=== PATIENT | female | born 1955 | race Caucasian/White ===

== ENCOUNTER 2017-11-02 05:30 | Day surgery (SDC) | payer BC, SELFPAY ==
[2017-10-19 09:50] VITALS: BP 106/71; BMI 36.5
--- NOTE | 2017-10-27 08:28 | EKG12_ITS ---
Test Reason : PRE OP Blood Pressure : / mmHG Vent. Rate : 077 BPM Atrial Rate : 077 BPM P-R Int : 138 ms QRS Dur : 088 ms QT Int : 392 ms P-R-T Axes : 041 -53 031 degrees QTc Int : 443 ms Normal sinus rhythm Left anterior fascicular block Poor R wave progression Abnormal ECG Confirmed by PERI EMANUEL, MITCHEL ([id number]), graphic editor CHIDI RUIZ ([id number]) on 10/30/2017 12:49:44 PM Referred By: René Harvey Confirmed By:MITCHEL WHITT MD
[2017-11-02] VITALS (7 sets, daily range): BP systolic 86–124; BP diastolic 54–82; PULSE 50–72; RESP 16; TEMP 35.8–36.2; O2SAT 93–98; BMI 37.0
--- NOTE | 2017-11-02 | GALL_PTH ---
PATIENT: ASPEN FAUSTIN LOC: [facility] U#:[id number] AGE/SX: 62/F ROOM: RE11/02/[address]: Dr. René Harvey MD : 1955 BED: DIS: 11/02/2017 SPEC #: [id number] RECD: 11/02/17 14:50 STATUS: JAY AVIS #: [id number] VASILE: 11/02/17 00:[address]: René Harvey DEPT: SURGICAL PATHOLOGY RECD BY: Terell Galo ENTERED: 11/02/17 14:50 SP TYPE: ALIN BANERJEE DR: Estephania Robins, SECURITY ALARM INSTALLER-C Tissues: Gallbladder, NOS Procedures: Surgery Specimen Level III HEADER OPERATION: Laparoscopic cholecystectomy, umbilical hernia repair PRE-OP DIAGNOSIS: Biliary dyskinesia, umbilical hernia without obstruction and without gangrene TISSUE SUBMITTED: Gallbladder MICROSCOPIC DIAGNOSIS Gallbladder: Mild chronic cholecystitis. No stones are identified in the container or in the gallbladder. SJ:kendall 11/03/17 MICROSCOPIC DESCRIPTION Slides are reviewed. GROSS DESCRIPTION Received is one container labeled with the patient's name and designated gallbladder. The specimen consists of a gallbladder measuring 7 cm in length and up to 3 cm in diameter. The external surface is pink-tovar, smooth and glistening for the most part. Focally it is granular, hemorrhagic and contains cautery artifact. The gallbladder contains a small amount of green-yellow mucoid bile. No stones are identified in the container or in the gallbladder. The mucosa is bile-stained and without any mass lesions. The gallbladder wall measures 0.2 cm in thickness. Travel Rn sections from the gallbladder and the cystic duct are submitted in one cassette. / SARAHI:kendall 11/02/17 TC:3 CPT: 71823
[2017-11-02] MEDS: Cefazolin 2 GM in 0.9% Normal Saline 100 ML IV (07:10)
--- NOTE | 2017-11-02 07:18 | PCM.DC.GB ---
Discharge Diet: Light diet - advance as tolerated Discharge Activity: May Not Drive - for 2-3 days or while taking narcotic pain medications., - - Do not drive, work heavy equipment or sign legal documents for 24 hours. May shower in (days): 1 - with the bandage in place. Additional Activity Instructions:: Pain medication may cause nausea. You should typically eat light foods as you take your pain medications. Pain medication may also cause constipation. If this is a problem for you, please discuss with your doctor. Call your doctor if your incision/area has: Continuous Slow Oozing, Sudden Increased Bleeding, Increased Pain/ Swelling, Increased Redness, Foul Smelling Discharge Call your doctor if you observe: Fever of 101 or Higher Suture Line Care: Avoid Pulling/Pushing, Avoid Pinching/Bending Additional Dressing/Incision Instructions:: Leave operative bandaids on for 2 days. When you remove dressing, leave Steri-Strips on until your follow-up appointment, or until the Steri-Strips fall off on their own. Allergies/Adverse Reactions: Allergies shellfish derived Allergy (Mild, Verified 10/26/17 09:47) Unknown seasonal allergies Allergy (Mild, Uncoded 10/26/17 09:47) Unknown Medications to take at Discharge Ergocalciferol [Vitamin D] 50,000 units PO TUFR 08/24/17 Hydrochlorothiazide [Hctz] 25 mg PO DAILY 08/24/17 Pravastatin Sodium [Pravastatin Sodium] 80 mg PO QHS 08/24/17 Venlafaxine XR [Effexor Xr] 75 mg PO DAILY 08/24/17 black cohosh 20 mg tablet 20 mg PO QDAY 10/19/17 glucosamine sulfate 500 mg tablet 500 mg PO BID 10/19/17 meloxicam 7.5 mg tablet 7.5 mg PO QDAY 10/19/17 Primary Care Physician: Estephania Robins [Primary Care Provider] - Please Follow Up With: René Harvey MD - Please call [phone] to schedule an appointment. When: 7 days after your surgery.
--- NOTE | 2017-11-02 07:21 | PCM.OPRPT ---
Problem List (1) Biliary dyskinesia Status: Acute (2) Umbilical hernia without obstruction or gangrene Status: Acute Report of Operation Date of Procedure: 11/02/17 Pre-Operative Diagnosis: K 82.8 biliary dyskinesia. K 42.9 umbilical hernia without obstruction and without gangrene Post-Operative Diagnosis: Same Surgery/Procedure Performed:: [id number] laparoscopic cholecystectomy. Umbilical hernia without mesh Type of Anesthesia:: General Anesthesiologist: Margarito Wasserman Estimated Blood Loss (mL): < 25 cc Fluids Replaced: 1 L Description of Procedure: Patient was brought into the operating room and placed in the supine position. Under excellent general endotracheal intubation the abdomen was sterilely prepped and draped in the usual fashion. Local was injected infraumbilically and a curvilinear incision was made. Patient had an umbilical hernia which I dissected free. I was able to gain access intraperitoneally and I placed the 1012 trocar directly into the abdomen and inflated it to 15 torr. The patient was placed up in the head up and rotated to the left position. A subxiphoid #5 trocar was placed, inferior to this another #5 trocar was placed, and finally a lateral #5 trocar was placed. All of these under direct visualization without injury to underlying structures. Fundus of the gallbladder was retracted in a cephalad direction and significant amount of adhesions were taken down from the gallbladder itself. I dissected out the cystic duct place hemoclips proximally and distally and ligated the duct identified the cystic artery place hemoclips proximally and distally ligated the artery. I deliver the gallbladder from the gallbladder bed with use of electrocautery I did have some spillage of bile which I was easily able to retrieve but there were no stones. I placed a specimen a specimen bag delivered through the umbilical port without difficulty. Reinflated the abdomen and inspected the liver bed I had good hemostasis. I remove the trochars under direct visualization I had good hemostasis. I closed the umbilical defect with interrupted #1 Nurolon's. Skin incisions were closed with subcuticular stitches of 4-0 Monocryl. Sterile dressings were applied. She tolerated the procedure well. - Admit VTE Documentation VTE Present on Admission: No VTE Mechan Device Prophylaxis: SCD's VTE Pharm Prophylaxis ordered?: No Reason prophylaxis not ordered:: Treatment Not Indicated
[2017-11-02] MEDS: Bupivacaine 0.25% 30 ML Vial (07:50)
== END 2017-11-02 11:09 | disposition home or self-care (01) ==
LOC: SDC 05:31 → AC 05:31
PROVIDERS: Family Provider Nurse Practitioner; PCP Nurse Practitioner; Visit Provider Surgery
PROC: (CPT 47562; principal; 2017-11-02 06:55)
DX: K81.1 Chronic cholecystitis (principal); K42.9 Umbilical hernia without obstruction or gangrene; E11.9 Type 2 diabetes mellitus without complications; I10 Essential (primary) hypertension; E78.00 Pure hypercholesterolemia, unspecified; G47.30 Sleep apnea, unspecified; J30.2 Other seasonal allergic rhinitis; F32.9 Major depressive disorder, single episode, unspecified; Z79.84 Long term (current) use of oral hypoglycemic drugs; Z79.899 Other long term (current) drug therapy
CPT/HCPCS: 47562; 49585; 88304; J7120; J2405

== ENCOUNTER 2017-11-04 03:09 | Observation (INO) | payer BC, SELFPAY ==
[2017-11-04] VITALS (25 sets, daily range): BP systolic 100–174; BP diastolic 67–131; PULSE 55–107; RESP 14–22; TEMP 36.1–37.2; O2SAT 91–100; BMI 38.8; BMI 39.1
--- NOTE | 2017-11-04 03:11 | CT_ITS ---
STUDY: CT ABDOMEN AND PELVIS WITHOUT CONTRAST REASON FOR EXAM: Female, 62 years old. Pain and umbilical hernia repair on RADIATION DOSAGE (If Supplied By Facility): CTDIvol = ( 22.13 ) mGy, DLP = ( 1183.03 ) mGycm TECHNIQUE: Transaxial images were obtained from the dome of the diaphragm to the symphysis pubis without oral contrast, and without intravenous contrast. Sagittal and coronal images were reconstructed. Individualized dose optimization techniques were used for this CT. COMPARISON: None. FINDINGS: The visualized lung bases are unremarkable. The visualized portions of the heart are within normal limits. Hepatomegaly, with liver length of 20 cm. There has likely been cholecystectomy. There is a benign calcified granuloma of the spleen. Normal pancreas. Normal bilateral adrenal glands. Normal right kidney. Normal left kidney. Normal visualized stomach. Normal small intestine. Normal colon. The appendix is visualized and appears normal. Normal abdominal aorta. Normal inferior vena cava. Normal retroperitoneum. Normal urinary bladder. Postoperative changes in the umbilical portion of the abdominal wall compatible with recent hernia surgery. Small amount of residual free air is present at the surgical site. Stranding of fat is also present which is likely related to postoperative fat necrosis. No hematomas or abscesses are seen. Lumbosacral fusions and laminectomies. CT/Abdomen/Pelvis without Cont IMPRESSION: Residual postoperative changes involving the abdominal wall as described without abscess or hematoma. Hepatomegaly. No evidence of acute intestinal pathology. Electronically Signed: Freeman Meeks MD at 4:01 EST Tel , Service support ,
--- NOTE | 2017-11-04 03:12 | ED.VISSUMM ---
- ER Visit Summary Date of Service: 11/04/17 Chief Complaint: Abdominal pain History of Present Illness: The patient is a 62 F presenting for evaluation secondary to abdominal pain. Patient is less than 2 days status post laparoscopic cholecystectomy and umbilical hernia repair by Dr. Harvey. Patient was discharged without complication, but states that today she had a sudden onset of sharp stabbing epigastric abdominal pain. Patient states that it is moderate to severe worse with movement. Denies any nausea or vomiting. She denies any diarrhea but does endorse that she has been somewhat constipated since discharge. She denies any presence of fevers. Review of systems otherwise negative. Physical Examination: Well-nourished well-developed female visibly in moderate distress secondary to pain. Vital signs are within normal limits. Head normocephalic. Moist mucous membranes. No JVD noted, heart regular rate and rhythm no murmurs. Lungs sounds clear. Abdomen was tender with guarding in the epigastrium and distended. Incisions are clean dry and intact with no palpable masses. Normal distal pulses, skin normal color no rash. Remainder physical otherwise unremarkable. Test Results: CT abdomen and pelvis shows postsurgical changes with normal caliber large and small bowel per radiology. Per my review the patient does have a large stool load in the a sending and transverse colon. CBC shows mild leukocytosis of 11.9, chemistry shows no evidence of anion gap or acidosis. Liver panel does show mildly elevated ALT AST and lipase. Lipase was 617. Emergency Department Course and Treatment: Patient presented secondary to relatively significant abdominal pain. IV was immediately established patient was given 8 mg of morphine Zofran and fluids. She continued to have pain and was given dose of Dilaudid. Patient's workup was found to be unremarkable, by my personal review of her images potentially she is having pain from increased stool burden in her ascending colon, so the patient was given a dose of Bentyl for spasm, and was given a dose of the lactulose. Patient continued to have pain after this and was given a subsequent dose of 1/2 mg of Dilaudid. After that, however the patient started to become hypoxic due to re-decreased respiratory drive from increased opiates but received absolutely no pain relief from any of this. I repeated a lipase to see if this was trending in an upward direction and actually came down into the 400s. I obtain a lactic at that point there was found to be slightly above 2. I feel that the patient with only a lactic acid of 2 is a volvulus or ischemic gut, but regardless the patient is still having this intractable abdominal pain and I believe that she requires admission by surgery for further observation. I also considered the possibility of a retained gallstone, but upon review of the patient's records she does not have any history of gallstones on any of her imaging so this also seems unlikely. I discussed this with Dr. Graves who agreed to accept the patient to the floor. Disposition: Admission Impression: 1. Intractable abdominal pain 2. Recent laparoscopic cholecystectomy and umbilical hernia repair 3. Indeterminately elevated lipase This note was generated with [employer] dictation software. It may contain incorrect words, spelling, and punctuation that were not noted in review of the chart prior to signing ED Disposition - Plan for ED Patient: Chief Complaint: Abd Pain Referrals: Estephania Robins [Primary Care Provider] -
[2017-11-04] MEDS: 0.9% Normal Saline 1,000 ML 1000 ML IV (03:18)
[2017-11-04 03:27] LABS: Absolute Lymphocyte Count 2.91 X10^3/ul (0.83-4.51); Basophil# 0.02 X10^3/uL; Basophil% 0.2 % (0-1); Eosinophil# 0.28 X10^3/uL; Eosinophils% 2.3 % (0-5); Hematocrit 37.8 % (37-47); Hemoglobin 11.9 g/dl (12.0-15.0); Lymphocyte # 2.91 X10^3/ul (4.0); Lymphocyte % 24.4 % (19-41); Mean Corp Hgb Conc 31.5 g/gl (32-36); Mean Corpuscular Hgb 30.3 pg (27.0-32.0); Mean Corpuscular Volume 96.2 fL (81-99); Mean Platelet Vol. 11.3 fl (6.2-12.0); Monocyte# 0.69 X10^3/uL; Monocyte% 5.8 % (0-10); Neutrophil # 8.02 X10^3/uL (2.7-7.7); Neutrophil % 67.1 % (47-70); POSITIVE COUNT NO; POSITIVE DIFFERENTIAL NO; POSITIVE MORPHOLOGY NO; Platelet Count 270 K/mm3 (150-450); RBC Distribution Width CV 12.7 % (11.6-14.6); RBC Distribution Width SD 44.8 fl (35.1-43.9); Red Blood Count 3.93 M/mm3 (4.2-5.4); White Blood Count 11.9 K/mm3 (4.4-11.0)
[2017-11-04] MEDS: HYDROmorphone 1 MG/ML Syringe IV ×4 (03:39→15:46)
[2017-11-04 03:40] LABS: AST(SGOT) 67 U/L (15-37); Alanine Aminotransfer ALT/SGPT 65 U/L (13-56); Albumin, Serum 3.5 g/dL (3.2-5.0); Alkaline Phosphatase 83 U/L (45-117); Anion Gap 9 (5-15); BUN 25 mg/dL (7-18); BUN/Creat Ratio 25.2 RATIO (10-20); Calcium,Total 8.8 mg/dL (8.5-10.1); Chloride 101 mmol/L (98-107); Creatinine, Serum 0.99 mg/dL (0.55-1.02); EST Glomerular Filtration Rate 61 mL/min (>60); Est Glom Filt Rate - Afr Amer 73 mL/min (>60); Estimated Creatinine Clearance 49.99 ml/min; Globulin 3.5 g/dL (2.2-4.2); Glucose 146 mg/dL (74-106); Lipase 617 U/L (73-393); Potassium 3.7 mmol/L (3.5-5.1); Sodium Level 141 mmol/L (136-145)
[2017-11-04] MEDS: Dicyclomine 20 MG/2 ML Vial IM (04:15)
[2017-11-04] MEDS: Lactulose 20 GM/30 ML UDC PO (04:17)
[2017-11-04] MEDS: HYDROmorphone 1 MG/ML Syringe 0.5 MG IV (04:45)
[2017-11-04 05:30] LABS: Lipase 492 U/L (73-393)
[2017-11-04 05:52] LABS: Lactic Acid 2.3 mmol/L (0.4-2.0)
--- NOTE | 2017-11-04 05:58 | ED.RN ---
lactic acid 2.3, . made aware.
[2017-11-04] MEDS: 0.9% Normal Saline 1,000 ML 999 ML IV (05:59)
[2017-11-04] MEDS: Dextrose 5%-Lactated Ringers 1,000 ML 125 ML IV ×2 (08:07→21:48)
--- NOTE | 2017-11-04 08:15 | PCM.HP.STD ---
Problem List (1) Biliary dyskinesia Status: Acute History of Present Illness Date of Admission: 11/04/17 The patient is a 62 year old F who had elective cholecystectomy 2 days ago. She reports that after cholecystectomy she went home and was feeling fine the following day she was feeling fine until 1:30 in the morning this morning. She had sudden onset of severe epigastric pain. She reports no nausea or vomiting. She has not had a bowel movement since surgery. She said the pain was very severe and was not helped with pain medication. She does not have any fevers or chills. The pain is diffuse throughout the abdomen but worse in the epigastric area and does not radiate anywhere else. Past Medical History Allergies shellfish derived Allergy (Mild, Verified 11/04/17 06:57) Unknown seasonal allergies Allergy (Mild, Uncoded 11/04/17 03:10) Unknown Home Medications: Ambulatory Orders Medication Instructions Recorded Ergocalciferol [Vitamin D] 50,000 units PO TUFR 08/24/17 Hydrochlorothiazide [Hctz] 25 mg PO DAILY 08/24/17 Pravastatin Sodium [Pravastatin 80 mg PO QHS 08/24/17 Sodium] Venlafaxine XR [Effexor Xr] 75 mg PO DAILY 08/24/17 black cohosh 20 mg tablet 20 mg PO QDAY 10/19/17 glucosamine sulfate 500 mg tablet 500 mg PO BID 10/19/17 meloxicam 7.5 mg tablet 7.5 mg PO QDAY 10/19/17 Metformin HCl [Glucophage] 500 mg PO BID 11/04/17 Oxycodone HCl/Acetaminophen 1 tab PO Q4H PRN PRN 11/04/17 [Percocet 5-325] Surgical History: cholecystectomy Smoking Status: Never smoker Alcohol: None Drugs: None - *Family History Maternal History Items: No pertinent history Review of Systems Constitutional: Denies: Anorexia, Chills, Fever HEENT: Denies: Difficulty Swallowing Cardiovascular: Denies: Chest Pain Respiratory: Denies: Cough Gastrointestinal: Reports: Abdominal Pain - Diffuse abdominal pain worse in the epigastric region. Denies: Hematochezia, Nausea, Vomiting Genitourinary: Denies: Dysuria Musculoskeletal: Denies: Joint Tenderness Skin: Denies: Dryness, Jaundice Psychiatric: Denies: Anxiety, Depression VTE Information - Inpt Only VTE Present on Admission: No VTE Mechan Device Prophylaxis: SCD's VTE Pharm Prophylaxis ordered?: Yes - Physical Exam General: Alert, Oriented x3, Cooperative HEENT: Atraumatic, PERRLA, EOMI Lungs: Normal air movement Cardiovascular: Regular rate, Regular Rhythm Abdomen: Soft, Tender - Diffuse tenderness to palpation with no guarding or rebound., - - Incisions are clean dry and intact with no erythema. There is mild ecchymosis at the umbilical hernia site but there is no sign of infection. Skin: No rashes Musculoskeletal: No Muscle Wasting Vital Signs Temp Pulse Resp BP Pulse Ox 97.6 F L 71 22 H 174/96 H 94 11/04/17 07:47 11/04/17 07:47 11/04/17 07:47 11/04/17 07:47 11/04/17 07:47 Oxygen Flow Rate 3 Oxygen Delivery Method Nasal Cannula Weight: 220 lb 12.8 oz Body Mass Index (BMI) 39.1 Clinical Impression(s) from Imaging Studies Abdomen/Pelvis CT 11/04/17 03:11 IMPRESSION: Residual postoperative changes involving the abdominal wall as described without abscess or hematoma. Hepatomegaly. No evidence of acute intestinal pathology. Electronically Signed: Freeman Meeks MD at 4:01 EST Tel , Service support , Assessment/Plan 62-year-old female with postoperative pain after laparoscopic cholecystectomy 1. The patient had a CT scan in the emergency room. Her white count was also mildly elevated as was her lipase. LFTs were normal. Her CT did reveal large amount of stool in the ascending and transverse colon. I am also confused as to why she has pancreatitis that she did not have any stones in her gallbladder. Her lipase is already improving. I will keep her n.p.o. until repeat labs show her white count decreasing and her lactate decreasing. I will order her mag citrate and an enema for constipation. I will also start her on Colace. 2. She is requiring oxygen at this time. She is not describing any chest pain. I will start her on prophylactic Lovenox. If her oxygen status continues to deteriorate I will order a CTA. 3. N.p.o., IV fluids, SCDs, Lovenox, bowel regimen. Pain control. Zi Graves MD Pager: [facility] [address], [facility] [address] [place] [address] Office:
--- NOTE | 2017-11-04 08:20 | HP.PCM_ITS ---
Problem List (1) Biliary dyskinesia Status: Acute History of Present Illness Date of Admission: 11/04/17 The patient is a 62 year old F who had elective cholecystectomy 2 days ago. She reports that after cholecystectomy she went home and was feeling fine the following day she was feeling fine until 1:30 in the morning this morning. She had sudden onset of severe epigastric pain. She reports no nausea or vomiting. She has not had a bowel movement since surgery. She said the pain was very severe and was not helped with pain medication. She does not have any fevers or chills. The pain is diffuse throughout the abdomen but worse in the epigastric area and does not radiate anywhere else. Past Medical History Allergies shellfish derived Allergy (Mild, Verified 11/04/17 06:57) Unknown seasonal allergies Allergy (Mild, Uncoded 11/04/17 03:10) Unknown Home Medications: Ambulatory Orders Medication Instructions Recorded Ergocalciferol [Vitamin D] 50,000 units PO TUFR 08/24/17 Hydrochlorothiazide [Hctz] 25 mg PO DAILY 08/24/17 Pravastatin Sodium [Pravastatin 80 mg PO QHS 08/24/17 Sodium] Venlafaxine XR [Effexor Xr] 75 mg PO DAILY 08/24/17 black cohosh 20 mg tablet 20 mg PO QDAY 10/19/17 glucosamine sulfate 500 mg tablet 500 mg PO BID 10/19/17 meloxicam 7.5 mg tablet 7.5 mg PO QDAY 10/19/17 Metformin HCl [Glucophage] 500 mg PO BID 11/04/17 Oxycodone HCl/Acetaminophen 1 tab PO Q4H PRN PRN 11/04/17 [Percocet 5-325] Surgical History: cholecystectomy Smoking Status: Never smoker Alcohol: None Drugs: None - *Family History Maternal History Items: No pertinent history Review of Systems Constitutional: Denies: Anorexia, Chills, Fever HEENT: Denies: Difficulty Swallowing Cardiovascular: Denies: Chest Pain Respiratory: Denies: Cough Gastrointestinal: Reports: Abdominal Pain - Diffuse abdominal pain worse in the epigastric region. Denies: Hematochezia, Nausea, Vomiting Genitourinary: Denies: Dysuria Musculoskeletal: Denies: Joint Tenderness Skin: Denies: Dryness, Jaundice Psychiatric: Denies: Anxiety, Depression VTE Information - Inpt Only VTE Present on Admission: No VTE Mechan Device Prophylaxis: SCD's VTE Pharm Prophylaxis ordered?: Yes - Physical Exam General: Alert, Oriented x3, Cooperative HEENT: Atraumatic, PERRLA, EOMI Lungs: Normal air movement Cardiovascular: Regular rate, Regular Rhythm Abdomen: Soft, Tender - Diffuse tenderness to palpation with no guarding or rebound., - - Incisions are clean dry and intact with no erythema. There is mild ecchymosis at the umbilical hernia site but there is no sign of infection. Skin: No rashes Musculoskeletal: No Muscle Wasting Vital Signs Temp Pulse Resp BP Pulse Ox 97.6 F L 71 22 H 174/96 H 94 11/04/17 07:47 11/04/17 07:47 11/04/17 07:47 11/04/17 07:47 11/04/17 07:47 Oxygen Flow Rate 3 Oxygen Delivery Method Nasal Cannula Weight: 220 lb 12.8 oz Body Mass Index (BMI) 39.1 Clinical Impression(s) from Imaging Studies Abdomen/Pelvis CT 11/04/17 03:11 IMPRESSION: Residual postoperative changes involving the abdominal wall as described without abscess or hematoma. Hepatomegaly. No evidence of acute intestinal pathology. Electronically Signed: Freeman Meeks MD at 4:01 EST Tel , Service support , Assessment/Plan 62-year-old female with postoperative pain after laparoscopic cholecystectomy 1. The patient had a CT scan in the emergency room. Her white count was also mildly elevated as was her lipase. LFTs were normal. Her CT did reveal large amount of stool in the ascending and transverse colon. I am also confused as to why she has pancreatitis that she did not have any stones in her gallbladder. Her lipase is already improving. I will keep her n.p.o. until repeat labs show her white count decreasing and her lactate decreasing. I will order her mag citrate and an enema for constipation. I will also start her on Colace. 2. She is requiring oxygen at this time. She is not describing any chest pain. I will start her on prophylactic Lovenox. If her oxygen status continues to deteriorate I will order a CTA. 3. N.p.o., IV fluids, SCDs, Lovenox, bowel regimen. Pain control. Zi Graves MD Pager: [facility] [address], [facility] [address] [place] [address] Office:
[2017-11-04 09:09] LABS: Reflex Lactate? Y
[2017-11-04 09:33] LABS: Absolute Lymphocyte Count 0.69 X10^3/ul (0.83-4.51); Absolute Neutrophil Count 14.8 X10^3/uL (2.0-7.7); Eosinophil# 0.01 X10^3/uL; Eosinophils% 0.1 % (0-5); Hematocrit 39.5 % (37-47); Hemoglobin 12.5 g/dl (12.0-15.0); Lymphocyte # 0.69 X10^3/ul (4.0); Lymphocyte % 4.2 % (19-41); Mean Corp Hgb Conc 31.6 g/gl (32-36); Mean Corpuscular Hgb 30.5 pg (27.0-32.0); Mean Corpuscular Volume 96.3 fL (81-99); Mean Platelet Vol. 11.1 fl (6.2-12.0); Monocyte# 1.03 X10^3/uL; Monocyte% 6.2 % (0-10); Neutrophil # 14.77 X10^3/uL (2.7-7.7); Neutrophil % 89.2 % (47-70); Platelet Count 256 K/mm3 (150-450); RBC Distribution Width CV 12.6 % (11.6-14.6); White Blood Count 16.6 K/mm3 (4.4-11.0)
[2017-11-04] MEDS: Enoxaparin 40 MG/0.4 ML Syringe SC (09:41)
[2017-11-04] MEDS: Docusate Sodium 100 MG Capsule PO (09:41)
[2017-11-04] MEDS: Magnesium Citrate 300 ML PO (09:41)
[2017-11-04 09:53] LABS: POSITIVE COUNT NO; POSITIVE DIFFERENTIAL NO; POSITIVE MORPHOLOGY NO
[2017-11-04 09:55] LABS: ALB/GLOB Ratio 0.9 RATIO (0.9-2.4); AST(SGOT) 114 U/L (15-37); Alanine Aminotransfer ALT/SGPT 113 U/L (13-56); Albumin, Serum 3.4 g/dL (3.2-5.0); Alkaline Phosphatase 93 U/L (45-117); Anion Gap 8 (5-15); BUN 23 mg/dL (7-18); BUN/Creat Ratio 29.6 RATIO (10-20); Calcium,Total 8.2 mg/dL (8.5-10.1); Chloride 107 mmol/L (98-107); Creatinine, Serum 0.78 mg/dL (0.55-1.02); EST Glomerular Filtration Rate 80 mL/min (>60); Est Glom Filt Rate - Afr Amer 97 mL/min (>60); Estimated Creatinine Clearance 63.45 ml/min; Globulin 3.7 g/dL (2.2-4.2); Glucose 160 mg/dL (74-106); Potassium 3.9 mmol/L (3.5-5.1); Protein, Total 7.1 g/dL (6.4-8.2); Sodium Level 139 mmol/L (136-145)
--- NOTE | 2017-11-04 09:59 | RAD_ITS ---
STUDY: X-RAY CHEST REASON FOR EXAM: Female, 62 years old. Hypoxia. TECHNIQUE: PA and lateral views of the chest. COMPARISON: Prior comparison studies are not available for review at this time. FINDINGS: There are hypoventilatory changes in the lung bases. There is moderate stranding in both lower lobes worse on the left side. There are residuals of old granulomatous disease. There is no demonstrated pleural abnormality. Normal size heart. Normal mediastinum and osorio. Normal visualized pulmonary arteries. There is atherosclerotic tortuosity of the aortic arch and descending thoracic aorta. There is an increased kyphosis of the thoracic spine and degenerative changes. There is degenerative osteoarthritis of the bilateral shoulders. There is no demonstrated abnormality of the visualized soft tissue structures of the upper abdomen. RAD/Chest PA and Lateral IMPRESSION: Hypoventilatory and atelectatic changes in the lung bases worse on the left side. Infiltrate/atelectasis in the left lower lobe. Electronically Signed: Jono Rosales MD at 10:57 EST Tel , Service support ,
--- NOTE | 2017-11-04 10:08 | PCM.PN.BLA ---
Progress Note WBC going up with left shift. Will get CT abd with PO and IV contrast and start emperic Zosyn. Will also get 2 view CXR as pt requiring more O2 to keep sat over 92%. May be due to not taking deep breaths due to abdominal pain. Will continue NPO in case needs surgery. Zi Graves
--- NOTE | 2017-11-04 10:57 | NM_ITS ---
CLINICAL: Female,62 years old. Abdominal pain. Status post cholecystectomy. The examination was performed to rule out biliary leakage. EXAMINATION: NUCLEAR MEDICINE BILIARY SCAN. TECHNIQUE: Following intravenous injection of 5.6 mCi technetium mebrofenin, routine biliary scan was performed and carried out to one hour. COMPARISON: None. FINDINGS: There is homogenous uptake of the radiopharmaceutical by the liver. The common bile duct is not visualized. There is however collection of radioisotope inferior to the region of the caudate lobe of the liver persist during the examination and did not change in shape or location during the examination suspicious for biliary leakage. There is extension of the isotope the left side of the abdomen. NM/Hepatobilliary Imaging IMPRESSION: Collection of radioisotope inferior to the liver as described above strongly suspicious for biliary leakage. Electronically Signed: Jono Rosales MD at 15:18 EST Tel , Service support ,
--- NOTE | 2017-11-04 11:09 | PCM.PN.SRG ---
Subjective: Patient with acute onset of epigastric abdominal pain that then went diffuse in nature starting Monday about 1 in the morning. Her workup in the ER included a CAT scan which really did not show significant amount of fluid anywhere in the gallbladder fossa or even postoperatively for that matter. There is no free air either. Her pain is still present and really has not changed much. She has not had any bowel movements and has had an enema as well as some magnesium citrate. Her recovery was going quite well until the acute onset of this discomfort her lactic acid was elevated at 2.3 but her repeat was at 2. Her white count however has gone up. Objective: Diffusely tender pain only to deep palpation no real rebound guarding or peritoneal signs identified. Her umbilical incision looks clean there is absolutely no signs of any infections here - Physical Exam Vital Signs Temp Pulse Resp BP Pulse Ox 98.0 F 73 22 H 158/89 H 92 11/04/17 09:32 11/04/17 10:56 11/04/17 09:32 11/04/17 09:32 11/04/17 10:56 Oxygen Flow Rate 4 Oxygen Delivery Method Nasal Cannula Weight: 220 lb 12.8 oz Body Mass Index (BMI) 39.1 Laboratory Tests Past 24 Hrs 11/04/17 11/04/17 11/04/17 09:22 09:22 09:22 WBC 16.6 H RBC 4.10 L Hgb 12.5 Hct 39.5 MCV 96.3 MCH 30.5 MCHC 31.6 L RDW 12.6 RDW Differential 43.0 Plt Count 256 MPV 11.1 Immature Gran % (Auto) 0.300 Neut % (Auto) 89.2 H Lymph % (Auto) 4.2 L Stephens % (Auto) 6.2 Eos % (Auto) 0.1 Baso % (Auto) 0.0 Absolute Neuts (auto) 14.8 H Absolute Lymphs (auto) 0.69 L Total Counted Not Reportable Sodium 139 Potassium 3.9 Chloride 107 Carbon Dioxide 24.0 Anion Gap 8 BUN 23 H Creatinine 0.78 Estim Creat Clear Calc 63.45 Est GFR (MDRD) Af Amer 97 Est GFR (MDRD) Non-Af 80 BUN/Creatinine Ratio 29.6 H Glucose 160 H Lactic Acid 2.0 Calcium 8.2 L Total Bilirubin 0.40 AST 114 H ALT 113 H Alkaline Phosphatase 93 Total Protein 7.1 Albumin 3.4 Globulin 3.7 Albumin/Globulin Ratio 0.9 Assessment/Plan Assessment acute onset of abdominal pain of unknown etiology Plan: She is behaving like somebody who has a bile leak that is for sure. I discussed the case with Dr. Daniel brought up he is going to be ordering a HIDA scan see if there is a leak. If this does not show anything she may need to have a CT scan with IV and p.o. contrast. Hopefully we will not need to take her back to surgery for an exploratory laparoscopy.
--- NOTE | 2017-11-04 16:25 | NURSING ---
Patient off unit to ENDO.
--- NOTE | 2017-11-04 16:36 | PCM.PN.BLA ---
Progress Note Clinical Impression(s) from Imaging Studies Hepatobiliary Scan Nuclear Medicine 11/04/17 10:57 IMPRESSION: Collection of radioisotope inferior to the liver as described above strongly suspicious for biliary leakage. Electronically Signed: Jono Rosales MD at 15:18 EST Tel , Service support , Patient's HIDA scan is suggestive of biliary leak. I discussed ERCP with stent placement with the patient. I discussed the procedure as well as the risks. I discussed the risks including but not limited to bleeding, infection, perforation of the bowel or bile duct, pancreatitis. The patient understands risks and is willing to proceed with surgery. I discussed this with Dr. Harvey. If the patient is improved tomorrow we will continue current treatment. If the patient has worsened or is not experiencing improvement by tomorrow we will consider laparoscopic abdominal washout for the bile peritonitis. There is not a large fluid collection on CAT scan so I do not believe the patient needs biloma drainage. Continue antibiotics and n.p.o. for tonight. The patient is likely to develop ileus. Zi Graves MD Pager: [facility] [address], [address] [address] Office:
[2017-11-04 16:59] LABS: Lactic Acid 1.4 mmol/L (0.4-2.0)
[2017-11-04] MEDS: Propofol 10MG/Ml 1,000 MG/100 ML Bottle 3.003 MG CONT INF ×2 (19:45→23:22)
--- NOTE | 2017-11-04 19:52 | RAD_ITS ---
STUDY: X-RAY CHEST REASON FOR EXAM: Female, 62 years old. Shortness of breath and ETT placement TECHNIQUE: Single frontal view of the chest. COMPARISON: 10:37 AM today FINDINGS: There is no endotracheal tube terminating approximately 2.3 cm above the mike. There is increasing airspace disease bilaterally. Normal size heart. Normal mediastinum and osorio. Normal visualized pulmonary arteries. Normal visualized aortic arch and descending thoracic aorta. Normal visualized thoracic spine. Normal visualized ribs, clavicles, and shoulders. There is no demonstrated abnormality of the visualized soft tissue structures of the upper abdomen. RAD/Chest 1 View (Portable) IMPRESSION: ET tube as above. Increasing airspace disease and underaeration. Electronically Signed: Cecil Hicks MD at 21:23 EST , Service support ,
--- NOTE | 2017-11-04 20:56 | NURSING ---
Spoke with Yenny from [facility] about bed assignment. Transport is in route back to [facility] then will be headed this way to transport pt to [facility].
[2017-11-04 21:11] LABS: Allen Test POS; Base Excess 2 mmol/L (-2 to +2); Bicarbonate 28.3 mmol/L (22-26); Blood Gas Specimen Type ART; FI02 80; Mode A-C; O2 Delivery Device Vent; PEEP 5; PO2 68 mmHG (75-100); RR 14; SITE R Radial; SO2 91 % (95-99); Total Carbon Dioxide 30 mmol/L; Vt 450; pCO2 57.2 mmHg (35-45)
--- NOTE | 2017-11-04 21:12 | PCM.OPRPT ---
Problem List (1) Biliary dyskinesia Status: Acute Report of Operation Date of Procedure: 11/04/17 Pre-Operative Diagnosis: Postoperative bile leak Post-Operative Diagnosis: Postoperative bile leak Surgery/Procedure Performed:: ERCP with unsuccessful cannulation of common bile duct Description of Surgical Findings:: After 2 hours and multiple times I was unable to cannulate the common bile duct. I cannulated the pancreatic duct several times but I was unable to find the common bile duct. I was unable to get a guidewire or perform a sphincterotomy. At that time the case was aborted. The patient was unable to be extubated due to low tidal volumes. She was brought to the ICU intubated. Description of Procedure: The patient was brought back to the operating room and general anesthesia was induced. The patient was placed in prone position. Next the side-viewing scope was placed in the mouth and down into the stomach. The stomach contents were suctioned. The scope was advanced into the duodenum and the ampulla was located. Several attempts were made to cannulate the common bile duct. Over 2 hours were taken to try to cannulate common bile duct. Only the pancreatic duct was able to be cannulated several times. I was unable to perform a sphincterotomy or place a guidewire into the common bile duct and the case was aborted. The scope was removed and the stomach and the stomach contents were suctioned. The patient was kept intubated and taken to ICU at the end of the case. - Admit VTE Documentation VTE Mechan Device Prophylaxis: SCD's
--- NOTE | 2017-11-04 21:16 | PCM.PN.BLA ---
Progress Note After prolonged attempts I was unable to cannulate the common bile duct. The procedure was aborted. The patient required staying on a ventilator due to low tidal volumes and low saturations. She was brought to the ICU and kept on ventilator. A Carlton catheter was placed as well as an OG tube. The patient will require transfer to tertiary care center for control of the bile leak and repair. I have called the [facility] surgical intensive care unit for transfer. They have accepted the patient and her sending ground transport. I will continue vent support and antibiotics until they get here. Zi Graves MD Pager: [facility] [address], [address] [place] [address] Office:
--- NOTE | 2017-11-04 23:38 | NURSING ---
Pt leaving with [facility] transport at this time.
== END 2017-11-04 23:38 | disposition short-term general hospital (02) ==
LOC: ED 04:54 → MS3 06:20 → ICU 19:36
PROVIDERS: Admitting Provider Surgery; Emergency Provider Emergency Medicine; Family Provider Nurse Practitioner; PCP Nurse Practitioner; Visit Provider Surgery
PROC: (CPT 43260; principal; 2017-11-04 16:30)
DX: K91.89 Other postprocedural complications and disorders of digestive system (principal); Y83.8 Other surgical procedures as the cause of abnormal reaction of the patient, or of later complication, without mention of misadventure at the time of the procedure; K59.00 Constipation, unspecified; Z53.09 Procedure and treatment not carried out because of other contraindication; G47.30 Sleep apnea, unspecified; I10 Essential (primary) hypertension; G25.81 Restless legs syndrome; K21.9 Gastro-esophageal reflux disease without esophagitis; E78.00 Pure hypercholesterolemia, unspecified; R73.03 Prediabetes; Z79.84 Long term (current) use of oral hypoglycemic drugs; Z79.899 Other long term (current) drug therapy; F32.9 Major depressive disorder, single episode, unspecified
CPT/HCPCS: 43260; 31720; 36415; 36600; 71045; 71046; 74176; 76000; 78226; 80053; 82803; 83605; 83690; 85025; 94002; 96361; 96365; 96366; 96367; 96368; 96372; 96375; 96376; 99218; 99282; A9537; J7030; A4216; C1769; G0378; J1610; J2405

== ENCOUNTER → 2019-07-04 | Outpatient (CLI) | payer OTHER, SELFPAY ==
[2019-07-01 12:41] VITALS: BMI 36.5
--- NOTE | 2019-07-04 17:23 | BI_ITS ---
MAMMOGRAPHY - BILATERAL SCREENING REASON FOR EXAM: Female, 64 years old. Routine annual screening examination. PERTINENT HISTORY: Aunt with breast cancer. Remote right stereotactic breast biopsy. TECHNIQUE: Digital bilateral breast laxmi (3D mammographic acquisition) in the CC and MLO projections. 2-D mediolateral oblique (MLO) and craniocaudad (CC) views of both breasts were obtained. CAD: Full Field Digital Mammography with Computer Added Detection was performed. COMPARISON: Comparison is made with prior examination dated June 16, 2016 and February 15, 2011. FINDINGS: Breast Composition: There are scattered areas of fibroglandular density. There are no dominant masses or suspicious calcifications. A tissue clip marker from prior biopsy is seen in the deep upper lateral aspect of the right breast. Stable benign-appearing bilateral axillary lymph nodes. No other significant abnormalities are identified. There has been no significant change since the prior study. BI/SCREEN MAMM (CAD) W/LAXMI BILAT IMPRESSION: Stable bilateral screening mammogram. Yearly follow-up mammogram recommended. (A) ASSESSMENT CATEGORY: BIRADS Category 2: Benign. A letter regarding these results will be sent to the patient by the facility within 30 days. Approximately 10% of breast cancers are not detected by mammography. A normal mammogram should not delay biopsy of a clinically suspicious abnormality. [id number] Electronically Signed: Deny Holcomb, at 8:25 EDT , Service support ,
== END | disposition home or self-care (01) ==
LOC: OPBI 07-05 08:02
PROVIDERS: Family Provider Nurse Practitioner; PCP Nurse Practitioner; Referring Provider Nurse Practitioner; Visit Provider Nurse Practitioner
DX: Z12.31 Encounter for screening mammogram for malignant neoplasm of breast (principal)
CPT/HCPCS: 77063; 77067

== ENCOUNTER → 2020-07-09 | Outpatient (CLI) | payer MEDICAID, SELFPAY ==
[2019-07-01 12:41] VITALS: BMI 36.5
[2020-07-09 12:49] LABS: ALB/GLOB Ratio 1.1 RATIO (0.9-2.4); AST(SGOT) 17 U/L (15-37); Alanine Aminotransfer ALT/SGPT 27 U/L (13-56); Albumin, Serum 3.6 g/dL (3.2-5.0); Alkaline Phosphatase 83 U/L (45-117); Anion Gap 7 (5-15); BUN 21 mg/dL (7-18); BUN/Creat Ratio 21.3 RATIO (10-20); Calcium,Total 9.4 mg/dL (8.5-10.1); Chloride 103 mmol/L (98-107); Cholesterol 197 mg/dL (200); Creatinine, Serum 0.98 mg/dL (0.55-1.02); EST Glomerular Filtration Rate 61 mL/min (>60); Est Glom Filt Rate - Afr Amer 73 mL/min (>60); Globulin 3.3 g/dL (2.2-4.2); Glucose 101 mg/dL (74-106); High Density Lipoprotein 50 mg/dL; Protein, Total 6.9 g/dL (6.4-8.2); Sodium Level 142 mmol/L (136-145); Triglycerides 223 mg/dL; Very Low Density Lipoprotein 45 mg/dL (5-40)
== END | disposition home or self-care (01) ==
LOC: MFPLAB 10:10
PROVIDERS: PCP Family Medicine; Referring Provider Family Medicine; Visit Provider Family Medicine
DX: E78.5 Hyperlipidemia, unspecified (principal); R73.01 Impaired fasting glucose
CPT/HCPCS: 36415; 80053; 80061; 83036

== ENCOUNTER → 2021-03-05 08:11 | Outpatient (CLI) | payer MEDICAID, SELFPAY ==
[2019-07-01 12:41] VITALS: BMI 36.5
[2021-03-05 10:22] LABS: Absolute Lymphocyte Count 1.68 X10^3/uL (0.83-4.51); Absolute Neutrophil Count 3.1 X10^3/uL (2.0-7.7); Basophil# 0.03 X10^3/uL; Basophil% 0.6 % (0-1); Eosinophil# 0.14 X10^3/uL; Eosinophils% 2.6 % (0-5); Hematocrit 42.5 % (37-47); Hemoglobin 13.3 g/dL (12.0-15.0); Lymphocyte # 1.68 X10^3/ul (0.83-4.51); Lymphocyte % 31.1 % (19-41); Mean Corp Hgb Conc 31.3 g/dL (32-36); Mean Corpuscular Hgb 29.8 pg (27.0-32.0); Mean Corpuscular Volume 95.3 fL (81-99); Mean Platelet Vol. 11.6 fl (6.2-12.0); Monocyte# 0.43 X10^3/uL; NRBC Flagged by Analyzer 0 % (0-5); Neutrophil % 57.3 % (47-70); Platelet Count 217 K/mm3 (150-450); RBC Distribution Width CV 12.2 % (11.6-14.6); RBC Distribution Width SD 42.5 fl (35.1-43.9); Red Blood Count 4.46 M/mm3 (4.2-5.4); White Blood Count 5.4 K/mm3 (4.4-11.0)
[2021-03-05 10:37] LABS: ALB/GLOB Ratio 0.9 RATIO (0.9-2.4); AST(SGOT) 14 U/L (15-37); Alanine Aminotransfer ALT/SGPT 20 U/L (13-56); Albumin, Serum 3.4 g/dL (3.2-5.0); Alkaline Phosphatase 86 U/L (45-117); Anion Gap 6 (5-15); BUN 22 mg/dL (7-18); BUN/Creat Ratio 23.7 RATIO (10-20); Calcium,Total 8.8 mg/dL (8.5-10.1); Chloride 104 mmol/L (98-107); Cholesterol 196 mg/dL (200); Creatinine, Serum 0.93 mg/dL (0.55-1.02); EST Glomerular Filtration Rate 65 mL/min (>60); Est Glom Filt Rate - Afr Amer 78 mL/min (>60); Globulin 3.6 g/dL (2.2-4.2); Glucose 97 mg/dL (74-106); High Density Lipoprotein 44 mg/dL; Potassium 4.2 mmol/L (3.5-5.1); Sodium Level 141 mmol/L (136-145); Triglycerides 256 mg/dL; Very Low Density Lipoprotein 51 mg/dL (5-40)
== END ==
PROVIDERS: PCP Family Medicine; Referring Provider Family Medicine; Visit Provider Family Medicine
DX: I10 Essential (primary) hypertension (principal)
CPT/HCPCS: 36415; 80053; 80061; 85025

== ENCOUNTER → 2021-03-09 11:37 | Outpatient (CLI) | payer MEDICAID, SELFPAY ==
[2019-07-01 12:41] VITALS: BMI 36.5
[2021-03-09 15:32] LABS: Erythrocyte Sedimentation Rate 10 mm/hr (0-30)
[2021-03-09 15:53] LABS: CRP 3.62 mg/L (0.0-3.0); Rheumatoid Factor < 10.0 IU/mL (<15)
[2021-03-12 09:10] LABS: ANTINUCLEAR ANTIBODIES DIRECT Negative (Negative)
[2021-03-12 11:00] LABS: CCP IgG Antibodies 6 units (0-19)
== END ==
PROVIDERS: PCP Family Medicine; Visit Provider Family Medicine
DX: M13.0 Polyarthritis, unspecified (principal)
CPT/HCPCS: 36415; 85652; 86038; 86140; 86200; 86431

== ENCOUNTER → 2021-05-25 | Outpatient (CLI) | payer MEDICAID, SELFPAY | END | disposition home or self-care (01) | LOC: LABSPEC 14:18 | PROVIDERS: PCP Family Medicine; Referring Provider Family Medicine; Visit Provider Registered Nurse | DX: J06.9 Acute upper respiratory infection, unspecified (principal) | CPT/HCPCS: 87635; U0005; U0003 ==

== ENCOUNTER 2021-09-01 15:00 | Outpatient (RCR) | payer MEDICAID, SELFPAY ==
[2021-03-25 09:48] VITALS: BMI 36.5
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
--- NOTE | 2021-05-26 17:05 | HP.PTREVAL ---
ESTHER COVINGTON, It has been my pleasure to treat ASPEN FAUSTIN over the last 13 visits for L proximal humeral fracture. Please see the progress note below for an update on the physical therapy plan of care! Subjective: Getting better. Motion getting better. Still cannot put hand behind back comfortably. Limited on scratching back and drying back. Can reach up and out OK, still some difficulty and painful raising as I do not have the strength yet. Can put contacts in now. Sleeping OK. Objective/Function: L PROM: IR 45, ER 45, flexion 160, abduction 155. AROM Er 35 with pain, flexion 150 adn abduction 150 with compensation scap[, PSIS IR. Strength flexion 3, abd 3-, ext rotation 3, IR 4-. Pain with ext rot and flexion, abd. Compensation obvious with abd in scapula. + L ext rotation lag test, + drop arm test. Looks like RCT L but patient is improving funcitonally. Appropriate to continue PT up to ortho f/u in early june. Fair prognosis toward goals. Plan Plan: 3x/week for 3 weeks for. 1. PROM and stretching into IR and ER. 2. TB RC strength progress to HEP please ASASP and then progress strength to patinets tolerance. 3. ice as needed. Balance/Gait/Functional tests - Balance/Special Test Scores Quick DASH Score: 22.7250 Goals Goal 1:: ST: Full PROM L shouldr Goal Time Frame: 2-4 Weeks Goal 2:: ST: sleep without pain interruptions. Goal Time Frame: 2-4 Weeks Goal Progress: Goal Met Goal 3:: LT 8-12 weeks: Full aROM L shoulder to get ADLs back to normal Goal Time Frame: 8-12 Weeks Goal Progress: not IR. approp Goal 4:: Pt able to ride bike agian comfortably Goal Time Frame: 8-12 Weeks Goal Progress: not strong enough yet., Goal 5:: quick dash score of ,5/10 Goal Time Frame: 8-12 Weeks Goal Progress: 21, approp Anticipated Interventions Patient/Client Instruction: Educate patient on: Condition, Plan of Care For the Purpose of:: To decrease pain, To increase ROM, To improve muscle performance and motor function, To improve ability to perform ADL's, To increase tolerance to activity/condition/position, To improve ability of physical actions for home/community/work/leisure Therapeutic Exercise to Include: Strength training, Postural training, Flexibilty training, Passive ROM, Active ROM, Scapular Strength/Stabilization For the Purpose of:: To decrease pain, To increase ROM, To improve muscle performance and motor function, To improve ability of physical actions for home/community/work/leisure, To improve gait and locomotor functions Manual Therapy Techniques to Include: Passive ROM For the Purpose of:: To decrease pain, To increase ROM Cryotherapy (ice pack, ice massage): Yes For the Purpose of:: To decrease pain, To decrease swelling/inflammation Please do not hesitate to contact me at [phone] by phone or if you have questions or concerns regarding this new plan of care! Sincerely, Iban Contreras, DPT, OCS, CSCS
--- NOTE | 2021-06-21 17:36 | HP.PTREVAL ---
ESTHER COVINGTON, It has been my pleasure to treat ASPEN FAUSTIN over the last 21 visits for L proximal humeral fracture. Please see the progress note below for an update on the physical therapy plan of care! Subjective: Pt. reports being 90% better overall. Pt. reports being able to stretch it out with good results. She is still having issues with ADLs. She reports doing all functional activities without much issue. Pt. is sleeping well. Pt. has not been back cycling yet. Objective/Function: Overall Aspen is doing well. ROM: PROM: L shoulder: flexion 170deg, abd 175deg, ER at 90deg 90deg, IR at 90deg 40deg. AROM: flexion 150deg, abd 155deg, functional ER C5, functional IR L4. MMT: R shoulder 5/5 throughout. L shoulder: flexion 4/5, abd 4-/5, ER 4/5, IR 5-/5, ext 5/5. Pt. is still lacking end range PROM and AROM, but is overall improving. She has marked strength loss throughout RTC and deltoid musculature. I would like her to continue with PT with focus on end range active funtional IR and deltoid, RTC strengthening. She would like to get back to cycling, but feels like she would not be able to manuever the bike with the weakness she presently has in her L UE. I added standing flexion and abd with 1-2# wts today to complet at home. Plan Plan: Cont. with POC, adding in end range functional ROM and progress strengthening of deltoid and RTC. Progress as tolerated. I am asking for 16 more units of PT to focus on the above limitations allowing for her to progress back to previous levels of recreational activities. Balance/Gait/Functional tests - Balance/Special Test Scores Quick DASH Score: 22.7250 Goals Goal 1:: ST: Full PROM L shouldr Goal Time Frame: 2-4 Weeks Goal Progress: Progressing Goal 2:: ST: sleep without pain interruptions. Goal Time Frame: 2-4 Weeks Goal Progress: Goal Met Goal 3:: LT 8-12 weeks: Full aROM L shoulder to get ADLs back to normal Goal Time Frame: 8-12 Weeks Goal Progress: Progressing Goal 4:: Pt able to ride bike again comfortably Goal Time Frame: 8-12 Weeks Goal Progress: Progressing Goal 5:: quick dash score of ,5/10 Goal Time Frame: 8-12 Weeks Goal Progress: Progressing Goal 6:: LTG: Pt. to have increased L shoulder strength to at least 4+/5 throughout deltoid and RTC musculature. Goal Time Frame: 8-12 Weeks Goal Progress: Progressing Anticipated Interventions Patient/Client Instruction: Educate patient on: Condition, Plan of Care For the Purpose of:: To decrease pain, To increase ROM, To improve muscle performance and motor function, To improve ability to perform ADL's, To increase tolerance to activity/condition/position, To improve ability of physical actions for home/community/work/leisure Therapeutic Exercise to Include: Strength training, Postural training, Flexibilty training, Passive ROM, Active ROM, Scapular Strength/Stabilization For the Purpose of:: To decrease pain, To increase ROM, To improve muscle performance and motor function, To improve ability of physical actions for home/community/work/leisure, To improve gait and locomotor functions Manual Therapy Techniques to Include: Passive ROM For the Purpose of:: To decrease pain, To increase ROM Cryotherapy (ice pack, ice massage): Yes For the Purpose of:: To decrease pain, To decrease swelling/inflammation Please do not hesitate to contact me at [phone] by phone or if you have questions or concerns regarding this new plan of care! Sincerely, Ubaldo Hernandez DPT
--- NOTE | 2021-08-04 09:21 | HP.PTREVAL ---
ESTHER COVINGTON, It has been my pleasure to treat ASPEN FAUSTIN over the last 33 visits for L proximal humeral fracture. Please see the progress note below for an update on the physical therapy plan of care! Subjective: Doing really well. Better motion behind her. Dressing is getting easier. Activities normal with shoulder except end range of reaching behind. No pain. Sleeping fine. Objective/Function: 155 flexiona dn abd L AROM, 65 ext rot and L3 IR. Strength symnmetrical at 4/5 in all shoulder motions except ER 4-. No pain. Overall doing well , appropriate to cotninue via HEP and f/u 2 and 4 weeks to ensure maintenance of rOM and improvement of strength with fair prognosis. Plan Plan: f/u two weeks for aggressive L shoulder strength adn then in 4 weeks for final rechack. Balance/Gait/Functional tests - Balance/Special Test Scores Quick DASH Score: 6.8175 Goals Goal 1:: ST: Full PROM L shouldr Goal Time Frame: 2-4 Weeks Goal Progress: Goal Met Goal 2:: ST: sleep without pain interruptions. Goal Time Frame: 2-4 Weeks Goal Progress: Goal Met Goal 3:: LT 8-12 weeks: Full aROM L shoulder to get ADLs back to normal Goal Time Frame: 8-12 Weeks Goal Progress: Goal Met Goal 4:: Pt able to ride bike again comfortably Goal Time Frame: 8-12 Weeks Goal Progress: too lazy, could. Goal 5:: quick dash score of 15/10 Goal Time Frame: 8-12 Weeks Goal Progress: Goal Met Goal 6:: LTG: Pt. to have increased L shoulder strength to at least 4+/5 throughout deltoid and RTC musculature. Goal Time Frame: 8-12 Weeks Goal Progress: Progressing Anticipated Interventions Patient/Client Instruction: Educate patient on: Condition, Plan of Care For the Purpose of:: To decrease pain, To increase ROM, To improve muscle performance and motor function, To improve ability to perform ADL's, To increase tolerance to activity/condition/position, To improve ability of physical actions for home/community/work/leisure Therapeutic Exercise to Include: Strength training, Postural training, Flexibilty training, Passive ROM, Active ROM, Scapular Strength/Stabilization For the Purpose of:: To decrease pain, To increase ROM, To improve muscle performance and motor function, To improve ability of physical actions for home/community/work/leisure, To improve gait and locomotor functions Manual Therapy Techniques to Include: Passive ROM For the Purpose of:: To decrease pain, To increase ROM Cryotherapy (ice pack, ice massage): Yes For the Purpose of:: To decrease pain, To decrease swelling/inflammation Please do not hesitate to contact me at [phone] by phone or if you have questions or concerns regarding this new plan of care! Sincerely, Iban Contreras, DPT, OCS, CSCS
--- NOTE | 2021-09-01 15:35 | HP.PTDCSUM ---
It has been my pleasure to treat ASPEN FAUSTIN referred by ESTHER COVINGTON, with the diagnosis of L proximal humeral fracture for a total of 35 visit(s). Discharge Date: 09/01/21 Please see the following information for a summary of their discharge status. Subjective: No difficulties except rec activities. has been on bike and is no problem. No pain unless try to reach behind her and this is more of a pulling pain. Doing exercises couple times per week. Sleep is fine. L pain shoulder Pain Intensity (Out of 10): 0 % Improvement: 95 Objective/Function: L 56 ext rotation, symmetrical with R OH. No pain excetp end range IR today. strength is symmetrical with r except for ext rotation which is 4/5 and does have some compensation with scap elevation with resisted flexion but functional and without pain. Goal 1:: ST: Full PROM L shouldr Goal Progress: Goal Met Goal 2:: ST: sleep without pain interruptions. Goal Progress: Goal Met Goal 3:: LT 8-12 weeks: Full aROM L shoulder to get ADLs back to normal Goal Progress: Goal Met Goal 4:: Pt able to ride bike again comfortably Goal Progress: Goal Met Goal 5:: quick dash score of 15/10 Goal Progress: Goal Met Goal 6:: LTG: Pt. to have increased L shoulder strength to at least 4+/5 throughout deltoid and RTC musculature. Goal Progress: mostly met Plan: d/c If there are questions or concerns regarding this patient's physical therapy, please feel free to call me at [phone]. Thank you for the referral of this patient. Sincerely, Iban Contreras, DPT, OCS, CSCS Balance/Gait/Functional tests - Balance/Special Test Scores Quick DASH Score: 4.5450
== END 2021-09-01 19:00 | disposition home or self-care (01) ==
LOC: PT 15:00
PROVIDERS: PCP Family Medicine
DX: S42.292D Other displaced fracture of upper end of left humerus, subsequent encounter for fracture with routine healing (principal); X58.XXXD Exposure to other specified factors, subsequent encounter
CPT/HCPCS: 97110; 97140; 97161; 97164; 97530

== ENCOUNTER 2021-09-13 16:00 | Outpatient (CLI) | payer MEDICAID, SELFPAY | END 2021-09-13 23:59 | disposition short-term general hospital (02) | LOC: LABSPEC 09-16 13:49 | PROVIDERS: Visit Provider Nurse Practitioner Family | DX: Z20.822 Contact with and (suspected) exposure to COVID-19 (principal) | CPT/HCPCS: 87635; U0003; U0005 ==

== ENCOUNTER → 2022-01-18 | Outpatient (CLI) | payer OTHER, SELFPAY ==
[2022-01-18 18:19] LABS: Hemoglobin A1c 5.8 % (3.8-5.6)
[2022-01-18 18:23] LABS: Anion Gap 9 (5-15); BUN 22 mg/dL (7-18); BUN/Creat Ratio 23.1 RATIO (10-20); Calcium,Total 9.7 mg/dL (8.5-10.1); Chloride 102 mmol/L (98-107); Cholesterol 224 mg/dL (200); Creatinine, Serum 0.95 mg/dL (0.55-1.02); EST Glomerular Filtration Rate 63 mL/min (>60); Est Glom Filt Rate - Afr Amer 76 mL/min (>60); Glucose 103 mg/dL (74-106); High Density Lipoprotein 47 mg/dL; Sodium Level 139 mmol/L (136-145); Triglycerides 353 mg/dL; Very Low Density Lipoprotein 71 mg/dL (5-40)
== END | disposition home or self-care (01) ==
LOC: MFPLAB 16:41
PROVIDERS: PCP Family Medicine; Referring Provider Family Medicine; Visit Provider Family Medicine
DX: I10 Essential (primary) hypertension (principal); R73.01 Impaired fasting glucose
CPT/HCPCS: 36415; 80048; 80061; 83036

== ENCOUNTER → 2022-08-03 | Outpatient (CLI) | payer MEDICARE, SELFPAY ==
--- NOTE | 2022-08-03 13:14 | BI_ITS ---
MAMMOGRAPHY - BILATERAL SCREENING REASON FOR EXAM: Female, 67 years old. Routine annual screening examination. PERTINENT HISTORY: Aunt with breast cancer. Remote history of right stereotactic breast biopsy. TECHNIQUE: Digital bilateral breast laxmi (3D mammographic acquisition) in the CC and MLO projections. 2-D mediolateral oblique (MLO) and craniocaudad (CC) views of both breasts were obtained. CAD: Full Field Digital Mammography with Computer Added Detection was performed. COMPARISON: 07/04/2019, 06/16/2016. FINDINGS: Breast Composition: There are scattered areas of fibroglandular density. There are no dominant masses or suspicious calcifications. Stable right breast tissue biopsy marker. Stable scattered benign-appearing calcifications. No other significant abnormalities are identified. There has been no significant change since the prior study. BI/SCRN MAMM (CAD)W/LAXMI BILAT IMPRESSION: Stable bilateral screening mammogram. Yearly follow-up mammogram recommended. (A) ASSESSMENT CATEGORY: BIRADS Category 2: Benign. A letter regarding these results will be sent to the patient by the facility within 30 days. Approximately 10% of breast cancers are not detected by mammography. A normal mammogram should not delay biopsy of a clinically suspicious abnormality. Electronically Signed: Johnathon Prieto, at 16:15 EST ,
== END | disposition home or self-care (01) ==
LOC: OPBI 13:12
PROVIDERS: PCP Family Medicine; Visit Provider Family Medicine
DX: Z12.31 Encounter for screening mammogram for malignant neoplasm of breast (principal); Z80.3 Family history of malignant neoplasm of breast
CPT/HCPCS: 77063; 77067

== ENCOUNTER → 2023-01-30 | Outpatient (CLI) | payer MEDICARE, MEDICAID, SELFPAY ==
[2023-01-30 12:27] LABS: Erythrocyte Sedimentation Rate 12 mm/hr (0-30)
[2023-01-30 12:29] LABS: Absolute Lymphocyte Count 1.54 X10^3/uL (0.83-4.51); Absolute Neutrophil Count 3.8 X10^3/uL (2.0-7.7); Basophil# 0.03 X10^3/uL; Basophil% 0.5 % (0-1); Eosinophil# 0.11 X10^3/uL; Eosinophils% 1.9 % (0-5); Hemoglobin 14.6 g/dL (12.0-15.0); Lymphocyte # 1.54 X10^3/ul (0.83-4.51); Lymphocyte % 26.1 % (19-41); Mean Corp Hgb Conc 32.4 g/dL (32-36); Mean Corpuscular Hgb 31.1 pg (27.0-32.0); Mean Corpuscular Volume 95.7 fL (81-99); Mean Platelet Vol. 11.3 fl (6.2-12.0); Monocyte# 0.41 X10^3/uL; Monocyte% 6.9 % (0-10); NRBC Flagged by Analyzer 0 % (0-5); Neutrophil # 3.81 X10^3/uL (2.7-7.7); Neutrophil % 64.4 % (47-70); Platelet Count 257 K/mm3 (150-450); RBC Distribution Width CV 12.6 % (11.6-14.6); RBC Distribution Width SD 44.4 fl (35.1-43.9); White Blood Count 5.9 K/mm3 (4.4-11.0)
[2023-01-30 12:43] LABS: CRP 2.99 mg/L (0.0-3.0); Rheumatoid Factor < 10.0 IU/mL (<15); Uric Acid 5.5 mg/dL (2.6-6.0)
[2023-01-31 12:08] LABS: ANTINUCLEAR ANTIBODIES DIRECT Negative (Negative)
== END | disposition home or self-care (01) ==
PROVIDERS: PCP Family Medicine; Visit Provider Family Medicine
DX: M19.90 Unspecified osteoarthritis, unspecified site (principal); I10 Essential (primary) hypertension
CPT/HCPCS: 36415; 84550; 85025; 85652; 86038; 86140; 86431

== ENCOUNTER → 2023-05-19 | Outpatient (CLI) | payer MEDICARE, MEDICAID, SELFPAY ==
[2023-05-19 17:35] LABS: Absolute Lymphocyte Count 1.83 X10^3/uL (0.83-4.51); Absolute Neutrophil Count 3.3 X10^3/uL (2.0-7.7); Basophil# 0.01 X10^3/uL; Basophil% 0.2 % (0-1); Eosinophil# 0.13 X10^3/uL; Eosinophils% 2.2 % (0-5); Hematocrit 42.5 % (37-47); Hemoglobin 13.5 g/dL (12.0-15.0); Lymphocyte # 1.83 X10^3/ul (0.83-4.51); Lymphocyte % 31.1 % (19-41); Mean Corp Hgb Conc 31.8 g/dL (32-36); Mean Corpuscular Hgb 30.5 pg (27.0-32.0); Mean Corpuscular Volume 96.2 fL (81-99); Mean Platelet Vol. 11.2 fl (6.2-12.0); Monocyte# 0.57 X10^3/uL; Monocyte% 9.7 % (0-10); NRBC Flagged by Analyzer 0 % (0-5); Neutrophil # 3.33 X10^3/uL (2.7-7.7); Neutrophil % 56.6 % (47-70); Platelet Count 241 K/mm3 (150-450); RBC Distribution Width CV 12.2 % (11.6-14.6); RBC Distribution Width SD 43.4 fl (35.1-43.9); Red Blood Count 4.42 M/mm3 (4.2-5.4); White Blood Count 5.9 K/mm3 (4.4-11.0)
[2023-05-19 17:49] LABS: Erythrocyte Sedimentation Rate 16 mm/hr (0-30)
[2023-05-19 18:28] LABS: AST(SGOT) 21 U/L (15-37); Alanine Aminotransfer ALT/SGPT 33 U/L (13-56); Albumin, Serum 3.6 g/dL (3.2-5.0); Alkaline Phosphatase 79 U/L (45-117); Anion Gap 6 (5-15); BUN 26 mg/dL (7-18); BUN/Creat Ratio 30.1 RATIO (10-20); CRP 4.84 mg/L (0.0-3.0); Calcium,Total 9.3 mg/dL (8.5-10.1); Chloride 108 mmol/L (98-107); Creatinine, Serum 0.86 mg/dL (0.55-1.02); EST Glomerular Filtration Rate 70 mL/min (>60); Est Glom Filt Rate - Afr Amer 85 mL/min (>60); Globulin 3.5 g/dL (2.2-4.2); Glucose 96 mg/dL (74-106); Potassium 4.2 mmol/L (3.5-5.1); Protein, Total 7.1 g/dL (6.4-8.2); Rheumatoid Factor < 10.0 IU/mL (<15); Sodium Level 141 mmol/L (136-145)
[2023-05-19 18:54] LABS: Hepatitis B Surface Antibody Non-Reactive; Hepatitis B Surface Antigen Non-Reactive (Nonreactive); Hepatitis C Antibody Non-Reactive (Nonreactive)
[2023-05-22 12:08] LABS: CCP IgG Antibodies 4 units (0-19)
[2023-05-22 16:09] LABS: ANTINUCLEAR ANTIBODIES DIRECT Negative (Negative)
== END | disposition home or self-care (01) ==
LOC: MFPLAB 14:29
PROVIDERS: PCP Family Medicine; Visit Provider Internal Medicine Rheumatology
DX: M06.4 Inflammatory polyarthropathy (principal); M19.041 Primary osteoarthritis, right hand; M19.042 Primary osteoarthritis, left hand; M47.897 Other spondylosis, lumbosacral region
CPT/HCPCS: 36415; 80053; 85025; 85652; 86038; 86140; 86200; 86431; 86706; 86803; 87340

== ENCOUNTER → 2023-08-23 | Outpatient (CLI) | payer MEDICARE, SELFPAY ==
[2023-08-23 12:10] LABS: Absolute Lymphocyte Count 1.44 X10^3/uL (0.83-4.51); Absolute Neutrophil Count 2.7 X10^3/uL (2.0-7.7); Basophil# 0.02 X10^3/uL; Basophil% 0.4 % (0-1); Eosinophil# 0.12 X10^3/uL; Eosinophils% 2.6 % (0-5); Hemoglobin 12.5 g/dL (12.0-15.0); Lymphocyte # 1.44 X10^3/ul (0.83-4.51); Lymphocyte % 30.7 % (19-41); Mean Corp Hgb Conc 31.3 g/dL (32-36); Mean Corpuscular Hgb 30.5 pg (27.0-32.0); Mean Corpuscular Volume 97.6 fL (81-99); Mean Platelet Vol. 11.1 fl (6.2-12.0); Monocyte# 0.37 X10^3/uL; Monocyte% 7.9 % (0-10); NRBC Flagged by Analyzer 0 % (0-5); Neutrophil # 2.73 X10^3/uL (2.7-7.7); Neutrophil % 58.2 % (47-70); Platelet Count 226 K/mm3 (150-450); RBC Distribution Width CV 12.1 % (11.6-14.6); RBC Distribution Width SD 43.7 fl (35.1-43.9); White Blood Count 4.7 K/mm3 (4.4-11.0)
[2023-08-23 12:31] LABS: ALB/GLOB Ratio 1.1 RATIO (0.9-2.4); AST(SGOT) 18 U/L (15-37); Alanine Aminotransfer ALT/SGPT 27 U/L (13-56); Albumin, Serum 3.5 g/dL (3.2-5.0); Alkaline Phosphatase 72 U/L (45-117); Anion Gap 6 (5-15); BUN 24 mg/dL (7-18); BUN/Creat Ratio 24.9 RATIO (10-20); Calcium,Total 9.1 mg/dL (8.5-10.1); Chloride 108 mmol/L (98-107); Creatinine, Serum 0.96 mg/dL (0.55-1.02); EST Glomerular Filtration Rate 61 mL/min (>60); Est Glom Filt Rate - Afr Amer 74 mL/min (>60); Globulin 3.2 g/dL (2.2-4.2); Glucose 98 mg/dL (74-106); Potassium 4.5 mmol/L (3.5-5.1); Protein, Total 6.7 g/dL (6.4-8.2); Sodium Level 144 mmol/L (136-145)
== END | disposition home or self-care (01) ==
LOC: MFPLAB 10:12
PROVIDERS: PCP Family Medicine; Visit Provider Internal Medicine Rheumatology
DX: M06.4 Inflammatory polyarthropathy (principal); M19.041 Primary osteoarthritis, right hand; Z79.899 Other long term (current) drug therapy
CPT/HCPCS: 36415; 80053; 85025

== ENCOUNTER → 2023-11-07 | Outpatient (CLI) | payer MEDICARE, SELFPAY ==
[2023-11-07 12:17] LABS: Absolute Lymphocyte Count 1.22 X10^3/uL (0.83-4.51); Absolute Neutrophil Count 2.6 X10^3/uL (2.0-7.7); Basophil# 0.02 X10^3/uL; Basophil% 0.5 % (0-1); Eosinophil# 0.15 X10^3/uL; Eosinophils% 3.4 % (0-5); Hematocrit 39.8 % (37-47); Lymphocyte # 1.22 X10^3/ul (0.83-4.51); Lymphocyte % 27.8 % (19-41); Mean Corp Hgb Conc 32.7 g/dL (32-36); Mean Corpuscular Hgb 31.5 pg (27.0-32.0); Mean Corpuscular Volume 96.4 fL (81-99); Mean Platelet Vol. 10.8 fl (6.2-12.0); Monocyte# 0.41 X10^3/uL; Monocyte% 9.3 % (0-10); NRBC Flagged by Analyzer 0 % (0-5); Neutrophil # 2.58 X10^3/uL (2.7-7.7); Neutrophil % 58.8 % (47-70); Platelet Count 232 K/mm3 (150-450); RBC Distribution Width CV 12.6 % (11.6-14.6); RBC Distribution Width SD 44.6 fl (35.1-43.9); Red Blood Count 4.13 M/mm3 (4.2-5.4); White Blood Count 4.4 K/mm3 (4.4-11.0)
[2023-11-07 13:25] LABS: ALB/GLOB Ratio 1.1 RATIO (0.9-2.4); AST(SGOT) 19 U/L (15-37); Alanine Aminotransfer ALT/SGPT 26 U/L (13-56); Albumin, Serum 3.6 g/dL (3.2-5.0); Alkaline Phosphatase 74 U/L (45-117); Anion Gap 5 (5-15); BUN 26 mg/dL (7-18); Calcium,Total 9.2 mg/dL (8.5-10.1); Chloride 108 mmol/L (98-107); Creatinine, Serum 0.93 mg/dL (0.55-1.02); EST Glomerular Filtration Rate 64 mL/min (>60); Est Glom Filt Rate - Afr Amer 78 mL/min (>60); Globulin 3.2 g/dL (2.2-4.2); Glucose 103 mg/dL (74-106); Protein, Total 6.8 g/dL (6.4-8.2); Sodium Level 140 mmol/L (136-145)
== END | disposition home or self-care (01) ==
LOC: MFPLAB 10:48
PROVIDERS: PCP Family Medicine; Visit Provider Internal Medicine Rheumatology
DX: M06.4 Inflammatory polyarthropathy (principal); Z79.899 Other long term (current) drug therapy
CPT/HCPCS: 36415; 80053; 85025

== ENCOUNTER → 2023-12-25 | Outpatient (CLI) | payer MEDICARE, SELFPAY ==
[2023-12-25 12:41] LABS: Absolute Neutrophil Count 2.3 X10^3/uL (2.0-7.7); Basophil# 0.02 X10^3/uL; Basophil% 0.5 % (0-1); Eosinophil# 0.17 X10^3/uL; Eosinophils% 4.1 % (0-5); Hematocrit 42.1 % (37-47); Hemoglobin 13.5 g/dL (12.0-15.0); Lymphocyte % 33.7 % (19-41); Mean Corp Hgb Conc 32.1 g/dL (32-36); Mean Corpuscular Hgb 31.2 pg (27.0-32.0); Mean Corpuscular Volume 97.2 fL (81-99); Mean Platelet Vol. 11.2 fl (6.2-12.0); Monocyte# 0.26 X10^3/uL; Monocyte% 6.3 % (0-10); NRBC Flagged by Analyzer 0 % (0-5); Neutrophil # 2.31 X10^3/uL (2.7-7.7); Neutrophil % 55.4 % (47-70); Platelet Count 235 K/mm3 (150-450); RBC Distribution Width CV 12.4 % (11.6-14.6); RBC Distribution Width SD 44.5 fl (35.1-43.9); Red Blood Count 4.33 M/mm3 (4.2-5.4); White Blood Count 4.2 K/mm3 (4.4-11.0)
[2023-12-25 13:06] LABS: AST(SGOT) 24 U/L (15-37); Alanine Aminotransfer ALT/SGPT 30 U/L (13-56); Albumin, Serum 3.4 g/dL (3.2-5.0); Alkaline Phosphatase 71 U/L (45-117); Anion Gap 5 (5-15); BUN 29 mg/dL (7-18); BUN/Creat Ratio 30.7 RATIO (10-20); Calcium,Total 9.1 mg/dL (8.5-10.1); Chloride 108 mmol/L (98-107); Creatinine, Serum 0.94 mg/dL (0.55-1.02); EST Glomerular Filtration Rate 63 mL/min (>60); Est Glom Filt Rate - Afr Amer 76 mL/min (>60); Globulin 3.3 g/dL (2.2-4.2); Glucose 113 mg/dL (74-106); Protein, Total 6.7 g/dL (6.4-8.2); Sodium Level 142 mmol/L (136-145)
== END | disposition home or self-care (01) ==
LOC: MFPLAB 09:48
PROVIDERS: PCP Family Medicine; Visit Provider Internal Medicine Rheumatology
DX: M06.4 Inflammatory polyarthropathy (principal); Z79.899 Other long term (current) drug therapy
CPT/HCPCS: 36415; 80053; 85025

== ENCOUNTER → 2024-02-28 | Outpatient (CLI) | payer MEDICARE, SELFPAY ==
--- NOTE | 2024-02-28 09:16 | NEURO ---
NCS and/or EMG Patient Report Ordering Doctor: Shirley Baker DATE OF SERVICE: 02/28/24 Ondina presents with complaints of pain in both feet. She also reports numbness and tingling in the left leg. Symptoms been prominent for greater than 1 month. She has a history of bilateral foot surgery and arthritis. Electrodiagnostic findings: The left peroneal motor nerve demonstrates normal distal latency, amplitude and conduction velocity. Right peroneal motor nerve demonstrates normal distal latency with borderline reduced amplitude and normal conduction velocity. Tibial motor nerve demonstrates normal distal latency, amplitude and conduction velocity bilaterally. Normal tibial and peroneal F?waves. Needle EMG testing was performed in the lower limbs. All muscles tested showed no evidence of denervation with normal motor unit action potentials. Electrodiagnostic assessment: This is a normal electrodiagnostic study of the lower limbs. There is no electrodiagnostic evidence for peripheral polyneuropathy. There is no electrodiagnostic evidence for lumbosacral radiculopathy. Multi Select Codes Neurology Neurology Interp Codes: 76846-03 Musc test done w/n test comp (interp) (2) and 80727-56 Nrv cndj test 11-12 studies (interp)
== END | disposition home or self-care (01) ==
LOC: PSN 06:45
PROVIDERS: PCP Family Medicine; Referring Provider Family Medicine; Visit Provider Family Medicine
DX: M79.673 Pain in unspecified foot (principal); M79.671 Pain in right foot; M79.672 Pain in left foot
CPT/HCPCS: 95886; 95912

== ENCOUNTER → 2024-03-06 | Outpatient (CLI) | payer MEDICARE, SELFPAY ==
[2024-03-06 12:20] LABS: Absolute Lymphocyte Count 1.23 X10^3/uL (0.83-4.51); Absolute Neutrophil Count 3.1 X10^3/uL (2.0-7.7); Basophil# 0.02 X10^3/uL; Basophil% 0.4 % (0-1); Eosinophil# 0.13 X10^3/uL; Eosinophils% 2.6 % (0-5); Hematocrit 40.3 % (37-47); Hemoglobin 12.8 g/dL (12.0-15.0); Lymphocyte # 1.23 X10^3/ul (0.83-4.51); Lymphocyte % 25.1 % (19-41); Mean Corp Hgb Conc 31.8 g/dL (32-36); Mean Corpuscular Hgb 31.1 pg (27.0-32.0); Mean Corpuscular Volume 97.8 fL (81-99); Mean Platelet Vol. 11.2 fl (6.2-12.0); Monocyte# 0.46 X10^3/uL; Monocyte% 9.4 % (0-10); NRBC Flagged by Analyzer 0 % (0-5); Neutrophil # 3.06 X10^3/uL (2.7-7.7); Neutrophil % 62.3 % (47-70); Platelet Count 219 K/mm3 (150-450); RBC Distribution Width CV 12.6 % (11.6-14.6); RBC Distribution Width SD 45.2 fl (35.1-43.9); Red Blood Count 4.12 M/mm3 (4.2-5.4); White Blood Count 4.9 K/mm3 (4.4-11.0)
[2024-03-06 12:40] LABS: ALB/GLOB Ratio 1.1 RATIO (0.9-2.4); AST(SGOT) 17 U/L (15-37); Alanine Aminotransfer ALT/SGPT 25 U/L (13-56); Albumin, Serum 3.5 g/dL (3.2-5.0); Alkaline Phosphatase 81 U/L (45-117); Anion Gap 2 (5-15); BUN 20 mg/dL (7-18); BUN/Creat Ratio 22.9 RATIO (10-20); Calcium,Total 8.9 mg/dL (8.5-10.1); Chloride 108 mmol/L (98-107); Creatinine, Serum 0.88 mg/dL (0.55-1.02); EST Glomerular Filtration Rate 69 mL/min (>60); Est Glom Filt Rate - Afr Amer 83 mL/min (>60); Globulin 3.2 g/dL (2.2-4.2); Glucose 95 mg/dL (74-106); Potassium 4.3 mmol/L (3.5-5.1); Protein, Total 6.7 g/dL (6.4-8.2); Sodium Level 141 mmol/L (136-145)
== END | disposition home or self-care (01) ==
LOC: MFPLAB 11:07
PROVIDERS: PCP Family Medicine; Visit Provider Internal Medicine Rheumatology
DX: M06.4 Inflammatory polyarthropathy (principal); Z79.899 Other long term (current) drug therapy
CPT/HCPCS: 36415; 80053; 85025

== ENCOUNTER → 2024-05-10 | Outpatient (CLI) | payer MEDICARE, SELFPAY ==
--- NOTE | 2024-05-10 13:53 | BI_ITS ---
MAMMOGRAPHY - BILATERAL SCREENING REASON FOR EXAM: Female, 69 years old. Routine annual screening examination. PERTINENT HISTORY: Aunt with breast cancer. Prior right stereotactic breast biopsy. TECHNIQUE: Digital bilateral breast laxmi (3D mammographic acquisition) in the CC and MLO projections. 2-D mediolateral oblique (MLO) and craniocaudad (CC) views of both breasts were obtained. CAD: Full Field Digital Mammography with Computer Added Detection was performed. COMPARISON: Comparison is made with prior study dated August 03, 2022 and July 04, 2019. FINDINGS: Breast Composition: There are scattered areas of fibroglandular density. There are no dominant masses or suspicious calcifications. Stable bilateral fat containing axillary lymph nodes. No other significant abnormalities are identified. There has been no significant change since the prior study. BI/SCRN MAMM (CAD)W/LAXMI BILAT IMPRESSION: Stable bilateral screening mammogram. Yearly follow-up mammogram recommended. (A) ASSESSMENT CATEGORY: BIRADS Category 2: Benign. A letter regarding these results will be sent to the patient by the facility within 30 days. Approximately 10% of breast cancers are not detected by mammography. A normal mammogram should not delay biopsy of a clinically suspicious abnormality. [id number] Electronically Signed: Deny Holcomb MD at 15:03 EDT ,
== END | disposition home or self-care (01) ==
LOC: OPBI 13:52
PROVIDERS: PCP Family Medicine; Referring Provider Family Medicine; Visit Provider Family Medicine
DX: Z12.31 Encounter for screening mammogram for malignant neoplasm of breast (principal)
CPT/HCPCS: 77063; 77067

== ENCOUNTER → 2024-05-22 | Outpatient (CLI) | payer MEDICARE, SELFPAY ==
[2024-05-22 15:02] LABS: Absolute Lymphocyte Count 1.44 X10^3/uL (0.83-4.51); Absolute Neutrophil Count 3.2 X10^3/uL (2.0-7.7); Basophil# 0.03 X10^3/uL; Basophil% 0.6 % (0-1); Eosinophil# 0.17 X10^3/uL; Eosinophils% 3.2 % (0-5); Hemoglobin 12.9 g/dL (12.0-15.0); Lymphocyte # 1.44 X10^3/ul (0.83-4.51); Lymphocyte % 27.1 % (19-41); Mean Corp Hgb Conc 32.3 g/dL (32-36); Mean Corpuscular Volume 96.2 fL (81-99); Mean Platelet Vol. 11.2 fl (6.2-12.0); Monocyte# 0.47 X10^3/uL; Monocyte% 8.9 % (0-10); NRBC Flagged by Analyzer 0 % (0-5); Neutrophil # 3.19 X10^3/uL (2.7-7.7); Platelet Count 213 K/mm3 (150-450); RBC Distribution Width CV 12.1 % (11.6-14.6); RBC Distribution Width SD 42.6 fl (35.1-43.9); Red Blood Count 4.16 M/mm3 (4.2-5.4); White Blood Count 5.3 K/mm3 (4.4-11.0)
[2024-05-22 15:25] LABS: ALB/GLOB Ratio 1.1 RATIO (0.9-2.4); AST(SGOT) 19 U/L (15-37); Alanine Aminotransfer ALT/SGPT 24 U/L (13-56); Albumin, Serum 3.5 g/dL (3.2-5.0); Alkaline Phosphatase 75 U/L (45-117); Anion Gap 6 (5-15); BUN 27 mg/dL (7-18); BUN/Creat Ratio 26.2 RATIO (10-20); Calcium,Total 9.5 mg/dL (8.5-10.1); Chloride 106 mmol/L (98-107); Creatinine, Serum 1.03 mg/dL (0.55-1.02); EST Glomerular Filtration Rate 57 mL/min (>60); Est Glom Filt Rate - Afr Amer 69 mL/min (>60); Globulin 3.3 g/dL (2.2-4.2); Glucose 106 mg/dL (74-106); Potassium 3.9 mmol/L (3.5-5.1); Protein, Total 6.8 g/dL (6.4-8.2); Sodium Level 140 mmol/L (136-145)
== END | disposition home or self-care (01) ==
LOC: MTLAB 11:21
PROVIDERS: PCP Family Medicine; Referring Provider Internal Medicine Rheumatology; Visit Provider Internal Medicine Rheumatology
DX: M06.4 Inflammatory polyarthropathy (principal); Z79.899 Other long term (current) drug therapy
CPT/HCPCS: 36415; 80053; 85025

== ENCOUNTER → 2024-08-13 | Outpatient (CLI) | payer MEDICARE, SELFPAY ==
[2024-08-13 12:05] LABS: Absolute Lymphocyte Count 1.05 X10^3/uL (0.83-4.51); Basophil# 0.01 X10^3/uL; Basophil% 0.2 % (0-1); Eosinophil# 0.08 X10^3/uL; Eosinophils% 1.7 % (0-5); Hematocrit 41.5 % (37-47); Hemoglobin 13.5 g/dL (12.0-15.0); Lymphocyte # 1.05 X10^3/ul (0.83-4.51); Lymphocyte % 22.8 % (19-41); Mean Corp Hgb Conc 32.5 g/dL (32-36); Mean Corpuscular Volume 95.2 fL (81-99); Mean Platelet Vol. 11.2 fl (6.2-12.0); Monocyte# 0.45 X10^3/uL; Monocyte% 9.8 % (0-10); NRBC Flagged by Analyzer 0 % (0-5); Neutrophil % 65.3 % (47-70); Platelet Count 245 K/mm3 (150-450); RBC Distribution Width CV 12.5 % (11.6-14.6); RBC Distribution Width SD 43.9 fl (35.1-43.9); Red Blood Count 4.36 M/mm3 (4.2-5.4); White Blood Count 4.6 K/mm3 (4.4-11.0)
[2024-08-13 12:53] LABS: ALB/GLOB Ratio 1.1 RATIO (0.9-2.4); AST(SGOT) 17 U/L (15-37); Alanine Aminotransfer ALT/SGPT 22 U/L (13-56); Albumin, Serum 3.6 g/dL (3.2-5.0); Alkaline Phosphatase 74 U/L (45-117); Anion Gap 7 (5-15); BUN 18 mg/dL (7-18); BUN/Creat Ratio 19.1 RATIO (10-20); Calcium,Total 9.5 mg/dL (8.5-10.1); Chloride 107 mmol/L (98-107); Creatinine, Serum 0.94 mg/dL (0.55-1.02); EST Glomerular Filtration Rate 63 mL/min (>60); Est Glom Filt Rate - Afr Amer 76 mL/min (>60); Globulin 3.2 g/dL (2.2-4.2); Glucose 103 mg/dL (74-106); Potassium 3.8 mmol/L (3.5-5.1); Protein, Total 6.8 g/dL (6.4-8.2); Sodium Level 141 mmol/L (136-145)
== END | disposition home or self-care (01) ==
LOC: MFPLAB 10:02
PROVIDERS: PCP Family Medicine; Referring Provider Internal Medicine Rheumatology; Visit Provider Internal Medicine Rheumatology
DX: M06.4 Inflammatory polyarthropathy (principal); M19.041 Primary osteoarthritis, right hand; Z79.899 Other long term (current) drug therapy
CPT/HCPCS: 36415; 80053; 85025

== ENCOUNTER → 2024-11-08 | Outpatient (CLI) | payer MEDICARE, SELFPAY ==
[2024-11-08 17:48] LABS: Absolute Lymphocyte Count 0.99 X10^3/uL (0.83-4.51); Absolute Neutrophil Count 3.5 X10^3/uL (2.0-7.7); Basophil# 0.02 X10^3/uL; Basophil% 0.4 % (0-1); Eosinophil# 0.15 X10^3/uL; Hematocrit 38.4 % (37-47); Hemoglobin 12.6 g/dL (12.0-15.0); Lymphocyte # 0.99 X10^3/ul (0.83-4.51); Lymphocyte % 19.6 % (19-41); Mean Corp Hgb Conc 32.8 g/dL (32-36); Mean Corpuscular Hgb 32.2 pg (27.0-32.0); Mean Corpuscular Volume 98.2 fL (81-99); Mean Platelet Vol. 11.4 fl (6.2-12.0); Monocyte# 0.39 X10^3/uL; Monocyte% 7.7 % (0-10); NRBC Flagged by Analyzer 0 % (0-5); Neutrophil % 69.1 % (47-70); Platelet Count 230 K/mm3 (150-450); RBC Distribution Width CV 12.3 % (11.6-14.6); Red Blood Count 3.91 M/mm3 (4.2-5.4); White Blood Count 5.1 K/mm3 (4.4-11.0)
[2024-11-08 19:59] LABS: ALB/GLOB Ratio 1.5 RATIO (0.9-2.4); AST(SGOT) 19 U/L (<=31); Alanine Aminotransfer ALT/SGPT 16 U/L (<=34); Albumin, Serum 3.8 g/dL (3.4-4.8); Alkaline Phosphatase 72 U/L (35-104); Anion Gap 12 (5-15); BUN 21 mg/dL (4-19); BUN/Creat Ratio 22.1 RATIO (10-20); Calcium 9.5 mg/dL (7.6-11.0); Chloride 103 mmol/L (96-108); Creatinine, Serum 0.95 mg/dL (0.70-1.20); EST Glomerular Filtration Rate 65 (>60); Globulin 2.6 g/dL (2.2-4.2); Glucose 105 mg/dL (70-99); Protein, Total 6.4 g/dL (5.9-8.4); Sodium Level 144 mmol/L (133-145); Total Bilirubin 0.32 mg/dL (0.00-1.30)
== END | disposition home or self-care (01) ==
LOC: MTLAB 14:25
PROVIDERS: PCP Family Medicine; Referring Provider Internal Medicine Rheumatology; Visit Provider Internal Medicine Rheumatology
DX: M06.4 Inflammatory polyarthropathy (principal); Z79.899 Other long term (current) drug therapy
CPT/HCPCS: 36415; 80053; 85025

== ENCOUNTER → 2025-02-04 | Outpatient (CLI) | payer MEDICARE, SELFPAY ==
[2025-02-04 12:19] LABS: Absolute Lymphocyte Count 1.48 X10^3/uL (0.83-4.51); Basophil# 0.03 X10^3/uL; Basophil% 0.7 % (0-1); Eosinophil# 0.12 X10^3/uL; Hematocrit 38.7 % (37-47); Hemoglobin 12.4 g/dL (12.0-15.0); Lymphocyte # 1.48 X10^3/ul (0.83-4.51); Lymphocyte % 36.8 % (19-41); Mean Corpuscular Hgb 31.3 pg (27.0-32.0); Mean Corpuscular Volume 97.7 fL (81-99); Mean Platelet Vol. 11.4 fl (6.2-12.0); Monocyte# 0.38 X10^3/uL; Monocyte% 9.5 % (0-10); NRBC Flagged by Analyzer 0 % (0-5); Neutrophil # 1.99 X10^3/uL (2.7-7.7); Neutrophil % 49.5 % (47-70); Platelet Count 202 K/mm3 (150-450); RBC Distribution Width CV 12.4 % (11.6-14.6); Red Blood Count 3.96 M/mm3 (4.2-5.4)
[2025-02-04 12:51] LABS: ALB/GLOB Ratio 1.7 RATIO (0.9-2.4); AST(SGOT) 23 U/L (<=31); Alanine Aminotransfer ALT/SGPT 17 U/L (<=34); Albumin, Serum 4.1 g/dL (3.4-4.8); Alkaline Phosphatase 65 U/L (35-104); Anion Gap 12 (5-15); BUN 21 mg/dL (4-19); BUN/Creat Ratio 20.9 RATIO (10-20); Calcium,Total 9.9 mg/dL (7.6-11.0); Chloride 103 mmol/L (98-108); EST Glomerular Filtration Rate 62 (>60); Globulin 2.5 g/dL (2.2-4.2); Glucose 109 mg/dL (70-99); Potassium 3.9 mmol/L (3.3-5.1); Protein, Total 6.6 g/dL (5.9-8.4); Sodium Level 141 mmol/L (133-145); Total Bilirubin 0.46 mg/dL (0.00-1.30)
[2025-02-08 03:07] LABS: Lobster 0.15 kU/L (Class 0/I)
== END | disposition home or self-care (01) ==
LOC: MFPLAB 10:31
PROVIDERS: Otolaryngology Otolaryngology/Facial Plastic Surgery; PCP Internal Medicine Rheumatology; Referring Provider Internal Medicine Rheumatology; Visit Provider Internal Medicine Rheumatology
DX: M06.4 Inflammatory polyarthropathy (principal); K76.0 Fatty (change of) liver, not elsewhere classified; Z79.899 Other long term (current) drug therapy; T78.40XA Allergy, unspecified, initial encounter; X58.XXXA Exposure to other specified factors, initial encounter
CPT/HCPCS: 36415; 80053; 85025; 86003

== ENCOUNTER → 2025-03-25 | Outpatient (CLI) | payer MEDICARE, SELFPAY ==
--- NOTE | 2025-03-25 16:01 | BD_ITS ---
PROCEDURE: DEXA BONE DENSITY STUDY 03/25/2025 REASON FOR EXAM: F, age 70 y/o . Postmenopausal. TECHNIQUE: DEXA BONE DENSITY STUDY COMPARISON: Prior study dated June 16, 2016. FINDINGS: BMD and T-SCORES Lumbar spine: 1.035 g/cm2, T-score 0.5 Levels: L1 through L4 Change from prior: Improvement of 3.2%. Left femoral neck: 0.864 g/cm2, T-score 0.1 Femoral neck comparison data not recommended for monitoring change. Left total hip: 1.086 g/cm2, T-score 1.2 Change from prior: Loss of 0.5%. Right femoral neck: 1.004 g/cm2, T-score 1.4 Femoral neck comparison data not recommended for monitoring change. Right total hip: 1.085 g/cm2, T-score 1.2 Change from prior: Loss of 0.5%. The World Health Organization has defined the following categories based on bone density: Normal bone density: T-score equal to or greater than -1.0 Osteopenia: T-score between -1.0 and -2.5 Osteoporosis: T-score equal to or less than -2.5 The patient does meet the pharmacological treatment recommendations for prevention of osteoporosis. BD/Dexa Bone Density Study IMPRESSION: NORMAL T-SCORES. Recommend follow-up as clinically warranted. Reading Location: [place] [id number]
--- NOTE | 2025-03-25 16:01 | BD_ITS ---
PROCEDURE: DEXA BONE DENSITY STUDY 03/25/2025 REASON FOR EXAM: F, age 70 y/o . Postmenopausal. TECHNIQUE: DEXA BONE DENSITY STUDY COMPARISON: Prior study dated June 16, 2016. FINDINGS: BMD and T-SCORES Lumbar spine: 1.035 g/cm2, T-score 0.5 Levels: L1 through L4 Change from prior: Improvement of 3.2%. Left femoral neck: 0.864 g/cm2, T-score 0.1 Femoral neck comparison data not recommended for monitoring change. Left total hip: 1.086 g/cm2, T-score 1.2 Change from prior: Loss of 0.5%. Right femoral neck: 1.004 g/cm2, T-score 1.4 Femoral neck comparison data not recommended for monitoring change. Right total hip: 1.085 g/cm2, T-score 1.2 Change from prior: Loss of 0.5%. The World Health Organization has defined the following categories based on bone density: Normal bone density: T-score equal to or greater than -1.0 Osteopenia: T-score between -1.0 and -2.5 Osteoporosis: T-score equal to or less than -2.5 The patient does meet the pharmacological treatment recommendations for prevention of osteoporosis. BD/Dexa Bone Density Study IMPRESSION: NORMAL T-SCORES. Recommend follow-up as clinically warranted. Reading Location: [place] [id number]
== END | disposition home or self-care (01) ==
LOC: OPBD 15:59
PROVIDERS: PCP Family Medicine; Referring Provider Family Medicine; Visit Provider Family Medicine
DX: Z78.0 Asymptomatic menopausal state (principal)
CPT/HCPCS: 77080

== ENCOUNTER → 2025-03-25 | Outpatient (CLI) | payer MEDICARE, SELFPAY | END | disposition home or self-care (01) | LOC: MFPLAB 11:42 | PROVIDERS: PCP Internal Medicine Rheumatology; Visit Provider Otolaryngology Otolaryngology/Facial Plastic Surgery | DX: T78.40XA Allergy, unspecified, initial encounter (principal); X58.XXXA Exposure to other specified factors, initial encounter | CPT/HCPCS: 36415; 86003 ==

== ENCOUNTER → 2025-04-28 | Outpatient (CLI) | payer MEDICARE, SELFPAY ==
[2025-04-28 12:53] LABS: Hematocrit 39.6 % (37-47); Hemoglobin 13.0 g/dL (12.0-15.0); Immature Granulocytes Count 0.010 X10^3/uL (0.0-0.0); Mean Corp Hgb Conc 32.8 g/dL (32-36); Mean Corpuscular Volume 97.5 fL (81-99); Mean Platelet Vol. 12.5 fl (6.2-12.0); NRBC Flagged by Analyzer 0 % (0-5); Platelet Count 183 K/mm3 (150-450); RBC Distribution Width CV 12.6 % (11.6-14.6); RBC Distribution Width SD 45.1 fl (35.1-43.9); Red Blood Count 4.06 M/mm3 (4.2-5.4); White Blood Count 4.4 K/mm3 (4.4-11.0)
[2025-04-28 13:06] LABS: AST(SGOT) 25 U/L (<=31); Alanine Aminotransfer ALT/SGPT 22 U/L (<=34); Albumin, Serum 4.3 g/dL (3.4-4.8); Alkaline Phosphatase 60 U/L (35-104); Anion Gap 12 (5-15); BUN 25 mg/dL (4-19); BUN/Creat Ratio 23.6 RATIO (10-20); Calcium,Total 10.2 mg/dL (7.6-11.0); Carbon Dioxide 27.4 mmol/L (21.0-32.0); Chloride 104 mmol/L (98-108); Globulin 2.4 g/dL (2.2-4.2); Glucose 106 mg/dL (70-99); Potassium 4.0 mmol/L (3.3-5.1)
== END | disposition home or self-care (01) ==
LOC: MFPLAB 10:36
PROVIDERS: PCP Family Medicine; Visit Provider Internal Medicine Rheumatology
DX: M06.4 Inflammatory polyarthropathy (principal); K76.0 Fatty (change of) liver, not elsewhere classified; Z79.899 Other long term (current) drug therapy
CPT/HCPCS: 36415; 80053; 85025

== ENCOUNTER → 2025-07-28 | Outpatient (CLI) | payer MEDICARE, SELFPAY ==
[2025-07-28 12:25] LABS: Hematocrit 37.7 % (37-47); Hemoglobin 12.3 g/dL (12.0-15.0); Immature Granulocytes Count 0.010 X10^3/uL (0.0-0.0); Mean Corp Hgb Conc 32.6 g/dL (32-36); Mean Corpuscular Volume 98.2 fL (81-99); Mean Platelet Vol. 11.7 fl (6.2-12.0); NRBC Flagged by Analyzer 0 % (0-5); Platelet Count 218 K/mm3 (150-450); RBC Distribution Width CV 12.4 % (11.6-14.6); RBC Distribution Width SD 44.6 fl (35.1-43.9); Red Blood Count 3.84 M/mm3 (4.2-5.4); White Blood Count 4.8 K/mm3 (4.4-11.0)
[2025-07-28 12:59] LABS: AST(SGOT) 21 U/L (<=31); Alanine Aminotransfer ALT/SGPT 20 U/L (<=34); Albumin, Serum 4.2 g/dL (3.4-4.8); Alkaline Phosphatase 60 U/L (35-104); Anion Gap 9 (5-15); BUN 24 mg/dL (4-19); BUN/Creat Ratio 27.9 RATIO (10-20); Calcium,Total 10.3 mg/dL (7.6-11.0); Carbon Dioxide 28.7 mmol/L (21.0-32.0); Chloride 104 mmol/L (98-108); Globulin 2.5 g/dL (2.2-4.2); Glucose 88 mg/dL (70-99); Potassium 4.4 mmol/L (3.3-5.1)
== END | disposition home or self-care (01) ==
LOC: MFPLAB 10:52
PROVIDERS: PCP Family Medicine; Visit Provider Internal Medicine Rheumatology
DX: M06.4 Inflammatory polyarthropathy (principal); Z79.899 Other long term (current) drug therapy
CPT/HCPCS: 36415; 80053; 85025